=== PATIENT | male | born 1995 ===

== ENCOUNTER 2018-04-04 00:27 | Inpatient (IN) | payer OTHER ==
[2018-04-04 00:35] VITALS: O2SAT 98
--- NOTE | 2018-04-04 00:47 | ED PDOC ---
Psych Transfer Clearance - Clearance Statement Clearance Statement: Reviewed vital signs, lab results and transfer papers. Patient clinically stable for psychiatric admission.
[2018-04-04] MEDS ORDERED: Magnesium Hydroxide Susp 30 ml UD PO PRN (01:22)
[2018-04-04] MEDS ORDERED: DiphenhydrAMINE 50 mg/ml Inj IM PRN (01:22)
[2018-04-04] MEDS ORDERED: Alum-Mag Hydrox-Simethicone Susp (30 mL) PO PRN (01:22)
--- NOTE | 2018-04-04 06:41 | PCM.BM ---
<Kiley Gil - Last Filed: 04/04/18 06:39> Treatment Plan Problems - Problems identified on initial assessmt Self Harm Date Initiated: 04/04/18 Time Initiated: 02:00 Assessment reference: NA Status: Active Suicidal Ideation Date Initiated: 04/04/18 Time Initiated: 02:00 Assessment reference: NA Medication Nonadherence Date Initiated: 04/04/18 Time Initiated: 02:00 Assessment reference: NA Status: Active Hopelessness/Helplessness Date Initiated: 04/04/18 Time Initiated: 02:00 Assessment reference: NA Status: Active Treatment assets and liabiliti Patient Assests: cooperative, self-reliant, ADL independent, physically healthy, negotiates basic needs, cognitively intact Patient Liabilities: financial problems, poor support system, relationship conflicts, substance abuse, legal issue - Milieu Protocol Maintain good personal hygiene: daily Encourage regular showers, other Remind patient to perform daily oral care (prn), other Assist patient to perform ADL's (prn) Conduct patient checks and document Observation sheet: Q15 minutes Maintain personal safety: every shift Educate patient to report safety concerns to staff, every shift Monitor environment for contraband/sharps Medication safety: Monitor for expected outcome, potential side effects: every shift, Assess barriers to learning: every shift, Assess readiness for medication education: every shift <Marcellus Solano - Last Filed: 04/05/18 16:17> Family Contact Family involvement: Famliy/SO not involved Family contact: Patient declines to allow family contact at present Family contact name: Pt refused. - Goals for Treatment Patient goals for treatment: Pt refused to participate. Discharge/Continuing Care - Education Needs Education Needs: Patient Medication, Patient Diagnosis/Disease Process, Patient Coping Skills, Patient Community resources, Patient Aftercare Safety Plan - Discharge Discharge Criteria: Tolerates medication w/o severe side effects, Free of Suicidal thoughts, Free of paranoid thoughts, Free of agitation, Normal sleep pattern, Ability to care for self, Reduction of target symptoms Discharge to:: Correction - Treatment Team Participation Patient/Family/SO Statement: 04/05/18 16:16 Pt refused to attend treatment team on 04/05/18 due to pain in hand. Discussed with Family/SO: No Was Patient/Family/SO present at Treatment Team Meeting: No
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
--- NOTE | 2018-04-04 13:53 | CP.PCM.CON ---
History of Present Illness - History of Present Illness History of Present Illness: 23 yo male with history of depression and polysubstance abuse admitted to psyche unit because of suicidal attempt. Review of Systems - Review of Systems All systems: reviewed and no additional remarkable complaints except (aside from those mentioned above, 12 point system review were negative by me) Past Patient History - Tetanus Immunizations Tetanus Immunization: Unknown - Past Social History Smoking Status: Heavy Smoker > 10 Cigarettes Daily Chewing Tobacco Use: No Cigar Use: No Alcohol: None Drugs: Cannabis, Methamphetamine - GASTROINTESTINAL Hx Gastritis: Yes - PSYCHIATRIC Hx Anxiety: Yes Hx Depression: Yes Hx Substance Use: Yes (methamphetamine and) - ANESTHESIA Hx Anesthesia: Yes Hx Anesthesia Reactions: No Hx Malignant Hyperthermia: No Has any member of the family had a problem w/ anesthesia?: No Meds Allergies/Adverse Reactions: Allergies Allergy/AdvReac Type Severity Reaction Status Date / Time tramadol Allergy RASH Verified 04/04/18 03:32 - Medications Medications: Current Medications Acetaminophen (Tylenol 325mg Tab) 650 mg PO Q4 PRN PRN Reason: Pain, moderate (4-7) Al Hydrox/Mg Hydrox/Simethicone (Maalox Plus 30 Ml) 30 ml PO Q4 PRN PRN Reason: Dyspepsia Diphenhydramine HCl (Benadryl) 50 mg IM Q6 PRN PRN Reason: Extrapyramidal S/S Unable PO Diphenhydramine HCl (Benadryl) 50 mg PO Q6 PRN PRN Reason: Extrapyramidal Symptoms Diphenhydramine HCl (Benadryl) 50 mg PO HS PRN PRN Reason: Sleep Gabapentin (Neurontin) 100 mg PO TID AGUSTIN Haloperidol (Haldol) 5 mg PO Q4 PRN PRN Reason: Agitation Haloperidol Lactate (Haldol) 5 mg IM Q4 PRN PRN Reason: Agitation, Unable to Take PO Lorazepam (Ativan) 2 mg IM Q4 PRN PRN Reason: Anxiety/Agitation,Unable PO Magnesium Hydroxide (Milk Of Magnesia) 30 ml PO HS PRN PRN Reason: Constipation Quetiapine Fumarate (Seroquel) 50 mg PO BID AGUSTIN Quetiapine Fumarate (Seroquel) 200 mg PO HS AGUSTIN Physical Exam - Constitutional Appears: No Acute Distress - Head Exam Head Exam: ATRAUMATIC - Eye Exam Eye Exam: absent: Scleral icterus - ENT Exam ENT Exam: Mucous Membranes Moist - Neck Exam Neck exam: Negative for: Meningismus - Respiratory Exam Respiratory Exam: absent: Rales, Rhonchi, Wheezes, Respiratory Distress - Cardiovascular Exam Cardiovascular Exam: REGULAR RHYTHM, +S1, +S2 - GI/Abdominal Exam GI & Abdominal Exam: Soft. absent: Tenderness - Rectal Exam Rectal Exam: Deferred - Extremities Exam Extremities exam: Negative for: pedal edema - Back Exam Back exam: NORMAL INSPECTION - Neurological Exam Neurological exam: Alert, Oriented x3 - Psychiatric Exam Psychiatric exam: Normal Affect Results - Vital Signs Recent Vital Signs: Last Vital Signs Temp 98.4 F 04/04/18 00:32 Pulse 93 H 04/04/18 01:20 Resp 18 04/04/18 01:20 BP 106/75 04/04/18 00:32 Pulse Ox 98 04/04/18 00:32 Assessment & Plan (1) Suicide attempt Status: Acute Comment: psyche is managing
[2018-04-04 20:30] LABS: HEPATITIS B SURFACE AG Negative (NEGATIVE)
[2018-04-04 20:36] LABS: HEPATITIS A IGM NEGATIVE (NEGATIVE); HEPATITIS B CORE AB NEGATIVE (NEGATIVE)
[2018-04-04 20:47] LABS: HEPATITIS C ANTIBODY NEGATIVE (NEGATIVE)
[2018-04-05 08:43] LABS: HEMOGLOBIN 13.2 g/dL (12.0-18.0); MEAN CELL VOLUME 86.1 fl (80.0-94.0); MEAN CORPUSCULAR HEMOGLOBIN 28.1 pg (27.0-31.0); MEAN CORPUSCULAR HGB CONC 32.6 g/dL (33.0-37.0); RBC 4.71 Mil/uL (4.40-5.90); RED CELL DISTRIBUTION WIDTH 13.4 % (11.5-14.5); WHITE BLOOD COUNT 15.1 K/uL (4.8-10.8)
[2018-04-05 08:55] LABS: ALB/GLOB RATIO 1.3 (1.0-2.1); ALBUMIN 4.3 g/dL (3.5-5.0); ALT/SGPT 25 U/L (21-72); AST/SGOT 33 U/L (17-59); BLOOD UREA NITROGEN 13 mg/dl (9-20); CALCIUM 9.6 mg/dL (8.4-10.2); GFR NON-AFRICAN AMERICAN > 60; HDL CHOLESTEROL 33 MG/DL (30-70)
[2018-04-05 09:06] LABS: LDL CHOLESTEROL 57 mg/dL (0-129)
[2018-04-05 09:11] LABS: T4 7.01 ug/dl (5.5-11.0)
--- NOTE | 2018-04-05 13:24 | PCM.PYCHPN ---
Psychiatric Progress Note - Psychiatric Progress Note Patient seen today, length of contact: pt evaluated discussed with team chart reviewed Patient Chief Complaint: I do not want to talk Problems Identified/Issues Discussed: pt seen in his room, poor eye contact, guarded , evasive poor eye contact, depressed mood and affect, poor motivation and low energy, possibly related to amphetamine withdrawals, continues to report non command auditory hallucinations, putting him down, denied command hallucinations, denied active thoughts of self harm on the unit Medical Problems: pt reported first hospitalization due to suicidal attempt at age 13, multiple hospitalizations, after with hx of non compliance with treatment DSM 5 Symptoms Update: bipolar disorder amphetamine abuse cannabis abuse Medication Change: No Medical Record Reviewed: Yes Mental Status Examination - Cognitive Function Orientation: Person, Place, Situation Attention: WNL Concentration: Poor Association: WNL Fund of Knowledge: Poor Decription of patient's judgement and insights: poor insight and judgment - Mood Mood: Depressed, Anxious - Affect Affect: Constricted - Speech Speech: Soft - Formal Thought Process Formal Thought Process: Hallucinations, Delusions, Paranoia - Suicidal Ideation Suicidal Ideation: No - Homicidal Ideation Homicidal Ideation: No Goal/Treatment Plan - Goal/Treatment Plan Need for Continued Stay: Remain at risks for inpatient hospitalization, Discharge may exacerbated symptoms Progress Toward Problem(s) and Goals/Treatment Plan: t seroquel 50mg bid and 200mg qhs neurontin 100mg tid follow up on HIV and hepatits status motivational, group and supportive therapy
[2018-04-05] MEDS: Amoxicillin-Clav 875-125 mg Tab PO SCH (21:20)
[2018-04-06] MEDS: Amoxicillin-Clav 875-125 mg Tab PO SCH ×2 (09:15→21:08)
--- NOTE | 2018-04-06 10:43 | PCM.PYCHPN ---
Psychiatric Progress Note - Psychiatric Progress Note Patient seen today, length of contact: Pt evaluated, case discussed w/ team, chart reviewed Patient Chief Complaint: AH Problems Identified/Issues Discussed: Patient continues to report depressed mood, low energy, low motivation and AH, saying insulting things to him. He would not tell the headline writer what the voices were specifically saying, but denied CAH. NO SI/HI. He denied adverse effects to medications. We discussed continued titration of Seroquel. Medication Change: Yes (Increase Seroquel) Medical Record Reviewed: Yes Consults ordered or reviewed: Medicine consult Mental Status Examination - Cognitive Function Orientation: Person, Place, Situation, Time Memory: Intact Attention: WNL Concentration: Poor Association: WNL Fund of Knowledge: Poor Decription of patient's judgement and insights: Poor I/J - Mood Mood: Depressed, Anxious - Affect Affect: Constricted - Speech Speech: Soft - Formal Thought Process Formal Thought Process: Hallucinations Psychotic Thoughts and Behaviors: +AH - Suicidal Ideation Suicidal Ideation: No - Homicidal Ideation Homicidal Ideation: No Goal/Treatment Plan - Goal/Treatment Plan Need for Continued Stay: Remain at risks for inpatient hospitalization, Discharge may exacerbated symptoms Progress Toward Problem(s) and Goals/Treatment Plan: Bipolar disorder, Amphetamine abuse, Cannabis abuse -Increase Seroquel -Medicine consult -Individual and group therapy -Psychoeducation -Disposition planning
[2018-04-07 07:18] LABS: BASO % 0.2 % (0.0-2.0); EOS % 0.1 % (0.0-4.0); LYMPH # 1.1 K/uL (1.0-4.3); MEAN CELL VOLUME 85.2 fl (80.0-94.0); MEAN CORPUSCULAR HEMOGLOBIN 28.4 pg (27.0-31.0); MEAN CORPUSCULAR HGB CONC 33.3 g/dL (33.0-37.0); MEAN PLATELET VOLUME 7.5 fl (7.2-11.7); MONO # 2.1 K/uL (0.0-0.8); MONO % 11.3 % (0.0-10.0); NEUT # 15.5 K/uL (1.8-7.0); NEUT % 82.4 % (50.0-75.0); PLATELET COUNT 346 K/uL (130-400); RBC 4.57 Mil/uL (4.40-5.90); RED CELL DISTRIBUTION WIDTH 13.6 % (11.5-14.5); WHITE BLOOD COUNT 18.8 K/uL (4.8-10.8)
[2018-04-07] MEDS: Amoxicillin-Clav 875-125 mg Tab PO SCH ×2 (08:07→21:31)
--- NOTE | 2018-04-07 08:25 | PCM.PYCHPN ---
Psychiatric Progress Note - Psychiatric Progress Note Patient seen today, length of contact: Pt evaluated, case discussed w/ team, chart reviewed Patient Chief Complaint: Auditory Hallucinations Problems Identified/Issues Discussed: Patient continues to report depressed mood, low energy, low motivation and CAH, whispering to him that he should take a pen and stab himself in the neck. He is able to contract for safety and states that he will not engage in any self harm. He denied adverse effects to medications. We discussed continued titration of Seroquel. Medication Change: Yes (Increase Seroquel) Medical Record Reviewed: Yes Consults ordered or reviewed: Medicine consult Mental Status Examination - Cognitive Function Orientation: Person, Place, Situation, Time Memory: Intact Attention: WNL Concentration: Poor Association: WNL Fund of Knowledge: Poor Decription of patient's judgement and insights: Poor I/J - Mood Mood: Depressed, Anxious - Affect Affect: Constricted - Speech Speech: Soft - Formal Thought Process Formal Thought Process: Hallucinations Psychotic Thoughts and Behaviors: +CAH - Suicidal Ideation Suicidal Ideation: No - Homicidal Ideation Homicidal Ideation: No Goal/Treatment Plan - Goal/Treatment Plan Need for Continued Stay: Remain at risks for inpatient hospitalization, Discharge may exacerbated symptoms Progress Toward Problem(s) and Goals/Treatment Plan: Bipolar disorder, Amphetamine abuse, Cannabis abuse -Increase Seroquel -Will continue to monitor for safety -Medicine consult -Individual and group therapy -Psychoeducation -Disposition planning
[2018-04-07 11:13] LABS: LYMPHOCYTE 7 % (20-50); METAMYELOCYTE 1 % (0-0); MONOCYTE 6 % (0-10); MYELOCYTE 2 % (0-0); NEUTROPHIL 84 % (42-75); PLATELET ESTIMATE NORMAL (NORMAL); TOTAL CELLS COUNTED 100
[2018-04-07 21:02] LABS: BASO # 0.1 K/uL (0.0-0.2); BASO % 0.5 % (0.0-2.0); EOS # 0.1 K/uL (0.0-0.7); EOS % 0.4 % (0.0-4.0); HEMOGLOBIN 12.5 g/dL (12.0-18.0); LYMPH # 1.7 K/uL (1.0-4.3); LYMPH % 10.9 % (20.0-40.0); MEAN CELL VOLUME 84.9 fl (80.0-94.0); MEAN CORPUSCULAR HEMOGLOBIN 28.2 pg (27.0-31.0); MEAN CORPUSCULAR HGB CONC 33.2 g/dL (33.0-37.0); MEAN PLATELET VOLUME 7.8 fl (7.2-11.7); MONO % 12.8 % (0.0-10.0); NEUT % 75.4 % (50.0-75.0); RBC 4.42 Mil/uL (4.40-5.90); RED CELL DISTRIBUTION WIDTH 13.3 % (11.5-14.5); WHITE BLOOD COUNT 15.9 K/uL (4.8-10.8)
[2018-04-07 21:17] LABS: ALB/GLOB RATIO 1.1 (1.0-2.1); ALBUMIN 3.8 g/dL (3.5-5.0); ALT/SGPT 24 U/L (21-72); AST/SGOT 28 U/L (17-59); BLOOD UREA NITROGEN 12 mg/dl (9-20); CALCIUM 9.3 mg/dL (8.4-10.2); GFR NON-AFRICAN AMERICAN > 60
[2018-04-08 06:33] LABS: BASO # 0.1 K/uL (0.0-0.2); BASO % 0.4 % (0.0-2.0); EOS # 0.1 K/uL (0.0-0.7); EOS % 0.4 % (0.0-4.0); HEMOGLOBIN 12.6 g/dL (12.0-18.0); LYMPH # 1.1 K/uL (1.0-4.3); LYMPH % 6.5 % (20.0-40.0); MEAN CELL VOLUME 86.4 fl (80.0-94.0); MEAN CORPUSCULAR HEMOGLOBIN 28.4 pg (27.0-31.0); MEAN CORPUSCULAR HGB CONC 32.9 g/dL (33.0-37.0); MEAN PLATELET VOLUME 7.6 fl (7.2-11.7); MONO # 1.8 K/uL (0.0-0.8); MONO % 10.8 % (0.0-10.0); NEUT # 13.4 K/uL (1.8-7.0); NEUT % 81.9 % (50.0-75.0); RBC 4.44 Mil/uL (4.40-5.90); RED CELL DISTRIBUTION WIDTH 13.4 % (11.5-14.5); WHITE BLOOD COUNT 16.4 K/uL (4.8-10.8)
[2018-04-08] MEDS: Amoxicillin-Clav 875-125 mg Tab PO SCH (08:40)
--- NOTE | 2018-04-08 08:58 | PCM.PYCHPN ---
Psychiatric Progress Note - Psychiatric Progress Note Patient seen today, length of contact: Pt evaluated, case discussed w/ team, chart reviewed Patient Chief Complaint: Auditory Hallucinations Problems Identified/Issues Discussed: Patient continues to report depressed mood, low energy, low motivation and CAH, telling him to kill himself and insulting him. He is able to contract for safety at this time and denies acute SI. He denied adverse effects to medications. We discussed continued titration of Seroquel. Medication Change: Yes (Increase Seroquel) Medical Record Reviewed: Yes Consults ordered or reviewed: Medicine consult, ID and Surgery consults ordered Mental Status Examination - Cognitive Function Orientation: Person, Place, Situation, Time Memory: Intact Attention: WNL Association: WNL Fund of Knowledge: [facility] Decription of patient's judgement and insights: Poor I/J - Mood Mood: Depressed, Anxious - Affect Affect: Constricted - Speech Speech: Soft - Formal Thought Process Formal Thought Process: Hallucinations Psychotic Thoughts and Behaviors: +CAH - Suicidal Ideation Suicidal Ideation: No - Homicidal Ideation Homicidal Ideation: No Goal/Treatment Plan - Goal/Treatment Plan Need for Continued Stay: Remain at risks for inpatient hospitalization, Discharge may exacerbated symptoms Progress Toward Problem(s) and Goals/Treatment Plan: Bipolar disorder, Amphetamine abuse, Cannabis abuse -Increase Seroquel -Will continue to monitor for safety -Medicine consult -ID consult ordered -General Surgery consult ordered -Individual and group therapy -Psychoeducation -Disposition planning
--- NOTE | 2018-04-08 10:38 | CP.PCM.CON ---
History of Present Illness - History of Present Illness History of Present Illness: 23 yo male with Hx of depression and multiple suicide attempts is admitted to psych for depression ID consulted for left arm cellulitis Recent hx of Left arm lacerations secondary to suicide attempt as well as attempt to inject in nearby veins Review of Systems - Review of Systems All systems: reviewed and no additional remarkable complaints except - Constitutional Constitutional: As Per HPI - EENT Nose/Mouth/Throat: absent: As Per HPI, Epistaxis, Nasal Congestion, Nasal Discharge, Nasal Obstruction, Nasal Trauma, Nose Pain, Post Nasal Drip, Sinus Pain, Sinus Pressure, Bleeding Gums, Change in Voice, Dental Pain, Dry Mouth, Dysphagia, Halitosis, Hoarsness, Lip Swelling, Mouth Lesions, Mouth Pain, Odynophagia, Sore Throat, Throat Swelling, Tongue Swelling, Facial Pain, Neck Pain, Neck Mass, Other - Cardiovascular Cardiovascular: absent: As Per HPI, Acrocyanosis, Chest Pain, Chest Pain at Rest, Chest Pain with Activity, Claudication, Diaphoresis, Dyspnea, Dyspnea on Exertion, Edema, Irregular Heart Rhythm, Pain Radiating to Arm/Neck/Jaw, Leg Edema, Leg Ulcers, Lightheadedness, Orthopnea, Palpitations, Paroxysmal Nocturnal Dyspnea, Pedal Edema, Radiating Pain, Rapid Heart Rate, Slow Heart Rate, Syncope, Other - Respiratory Respiratory: absent: As Per HPI, Cough, Dyspnea, Hemoptysis, Dyspnea on Exertion, Wheezing, Snoring, Stridor, Pain on Inspiration, Chest Congestion, Excessive Mucous Production, Change in Mucous Color, Pain with Coughing, Other - Gastrointestinal Gastrointestinal: absent: As Per HPI, Abdominal Pain, Belching, Bloating, Change in Bowel Habits, Change in Stool Character, Coffee Ground Emesis, Constipation, Cramping, Diarrhea, Dyspepsia, Dysphagia, Early Satiety, Excessive Flatus, Fecal Incontinence, Heartburn, Hematemesis, Hematochezia, Loose Stools, Melena, Nausea, Odynophagia, Temesmus, Vomiting, Other - Genitourinary Genitourinary: absent: As Per HPI, Change in Urinary Stream, Difficulty Urinating, Dysuria, Flank Pain, Hematuria, Pyuria, Nocturia, Urinary Incontinence, Urinary Frequency, Urinary Hesitance, Urinary Urgency, Voiding Freq/Small Amts, Freq UTI, Hx Renal/Bladder Calculi, Hx /Renal Surgery, Bladder Distension, Other - Musculoskeletal Musculoskeletal: As Per HPI - Integumentary Integumentary: As Per HPI, Skin Pain, Swelling, Wounds - Neurological Neurological: absent: As Per HPI, Abnormal Gait, Abnormal Hearing, Abnormal Movements, Abnormal Speech, Behavioral Changes, Burning Sensations, Confusion, Convulsions, Disequilibrium, Dizziness, Numbness, Focal Weakness, Frequent Falls, Headaches, Lack of Coordination, Loss of Vision, Memory Loss, Pa resthesias, Radicular Pain, Restless Legs, Sensory Deficit, Syncope, Tingling, Tremor, Vertigo, Weakness, Other Visual Disturbances, Other - Psychiatric Psychiatric: As Per HPI Past Patient History - Tetanus Immunizations Tetanus Immunization: Unknown - Past Social History Smoking Status: Heavy Smoker > 10 Cigarettes Daily Chewing Tobacco Use: No Cigar Use: No Alcohol: None Drugs: Cannabis, Methamphetamine - GASTROINTESTINAL Hx Gastritis: Yes - PSYCHIATRIC Hx Anxiety: Yes Hx Depression: Yes Hx Substance Use: Yes (methamphetamine and) - ANESTHESIA Hx Anesthesia: Yes Hx Anesthesia Reactions: No Hx Malignant Hyperthermia: No Has any member of the family had a problem w/ anesthesia?: No Meds Allergies/Adverse Reactions: Allergies Allergy/AdvReac Type Severity Reaction Status Date / Time tramadol Allergy RASH Verified 04/04/18 03:32 - Medications Medications: Current Medications Acetaminophen (Tylenol 325mg Tab) 650 mg PO Q4 PRN PRN Reason: Fever >100.4 F Last Admin: 04/07/18 17:12 Dose: 650 mg Al Hydrox/Mg Hydrox/Simethicone (Maalox Plus 30 Ml) 30 ml PO Q4 PRN PRN Reason: Dyspepsia Amoxicillin/Clavulanate Potassium (Augmentin 875 Mg-125 Mg Tab) 1 tab PO Q12 AGUSTIN; Protocol Last Admin: 04/08/18 08:40 Dose: 1 tab Diphenhydramine HCl (Benadryl) 50 mg IM Q6 PRN PRN Reason: Extrapyramidal S/S Unable PO Diphenhydramine HCl (Benadryl) 50 mg PO Q6 PRN PRN Reason: Extrapyramidal Symptoms Diphenhydramine HCl (Benadryl) 50 mg PO HS PRN PRN Reason: Sleep Haloperidol (Haldol) 5 mg PO Q4 PRN PRN Reason: Agitation Haloperidol Lactate (Haldol) 5 mg IM Q4 PRN PRN Reason: Agitation, Unable to Take PO Vancomycin HCl 1 gm/ Sodium (Chloride) 250 mls @ 166.667 mls/hr IVPB Q12 AGUSTIN; Protocol Last Admin: 04/08/18 08:40 Dose: 166.667 mls/hr Ibuprofen (Motrin Tab) 600 mg PO Q8 PRN PRN Reason: Pain, severe (8-10) Last Admin: 04/08/18 09:05 Dose: 600 mg Lorazepam (Ativan) 2 mg IM Q4 PRN PRN Reason: Anxiety/Agitation,Unable PO Magnesium Hydroxide (Milk Of Magnesia) 30 ml PO HS PRN PRN Reason: Constipation Quetiapine Fumarate (Seroquel) 100 mg PO BID AG[facility]IN Last Admin: 04/08/18 08:39 Dose: 100 mg Quetiapine Fumarate (Seroquel) 300 mg PO HS [facility] Physical Exam - Constitutional Appears: No Acute Distress, Chronically Ill - Head Exam Head Exam: ATRAUMATIC, NORMOCEPHALIC - Eye Exam Eye Exam: absent: Scleral icterus - ENT Exam ENT Exam: Mucous Membranes Dry - Neck Exam Neck exam: Negative for: Lymphadenopathy - Respiratory Exam Respiratory Exam: Decreased Breath Sounds, Clear to Auscultation Bilateral - Cardiovascular Exam Cardiovascular Exam: REGULAR RHYTHM, +S1, +S2 - GI/Abdominal Exam GI & Abdominal Exam: Diminished Bowel Sounds, Soft. absent: Tenderness - Rectal Exam Rectal Exam: Deferred - Exam Exam: NORMAL INSPECTION - Extremities Exam Extremities exam: Positive for: pedal pulses present. Negative for: calf ten derness, pedal edema Additional comments: left arm swelling and redness - severe local tenderness and warmth pulses and sensation in tacy - Back Exam Back exam: absent: CVA tenderness (L), CVA tenderness (R) - Neurological Exam Neurological exam: Alert, CN II-XII Intact, Oriented x3, Reflexes Normal - Psychiatric Exam Psychiatric exam: Normal Mood - Skin Skin Exam: Erythema Results - Vital Signs Recent Vital Signs: Last Vital Signs Temp 101.6 F H 04/07/18 17:12 Pulse 102 H 04/07/18 16:08 Resp 19 04/07/18 16:08 BP 121/71 04/07/18 16:08 Pulse Ox 98 04/04/18 00:32 - Labs Result Diagrams: 04/08/18 06:05 02/10/19 20:48 Labs: Laboratory Results - last 24 hr 04/07/18 04/07/18 04/07/18 06:30 06:30 20:25 WBC RBC Hgb Hct MCV MCH MCHC RDW Plt Count MPV Neut % (Auto) Lymph % (Auto) [place] % (Auto) Eos % (Auto) Baso % (Auto) Neut # (Auto) Lymph # (Auto) [place] # (Auto) Eos # (Auto) Baso # (Auto) Neutrophils % (Manual) 84 H Lymphocytes % (Manual) 7 L Monocytes % (Manual) 6 Metamyelocytes % 1 H Myelocytes % 2 H Platelet Estimate Normal RBC Morphology Normal Sodium Potassium Chloride Carbon Dioxide Anion Gap BUN Creatinine Est GFR ( Amer) Est GFR (Non-Af Amer) POC Glucose (mg/dL) 196 H Random Glucose Lactic Acid Calcium Total Bilirubin AST ALT Alkaline Phosphatase Total Protein Albumin Globulin Albumin/Globulin Ratio 25-OH Vitamin D Total < 12.8 L 04/07/18 04/07/18 04/07/18 20:48 20:48 20:48 WBC 15.9 H RBC 4.42 Hgb 12.5 Hct 37.6 MCV 84.9 MCH 28.2 MCHC 33.2 RDW 13.3 Plt Count 340 MPV 7.8 Neut % (Auto) 75.4 H Lymph % (Auto) 10.9 L [place] % (Auto) 12.8 H Eos % (Auto) 0.4 Baso % (Auto) 0.5 Neut # (Auto) 12.0 H Lymph # (Auto) 1.7 [place] # (Auto) 2.0 H Eos # (Auto) 0.1 Baso # (Auto) 0.1 Neutrophils % (Manual) Lymphocytes % (Manual) Monocytes % (Manual) Metamyelocytes % Myelocytes % Platelet Estimate RBC Morphology Sodium 138 Potassium 3.7 Chloride 96 L Carbon Dioxide 28 Anion Gap 18 BUN 12 Creatinine 0.9 Est GFR ( Amer) > 60 Est GFR (Non-Af Amer) > 60 POC Glucose (mg/dL) Random Glucose 121 H Lactic Acid 1.1 Calcium 9.3 Total Bilirubin 0.3 AST 28 ALT 24 Alkaline Phosphatase 75 Total Protein 7.3 Albumin 3.8 Globulin 3.4 Albumin/Globulin Ratio 1.1 25-OH Vitamin D Total 04/08/18 06:05 WBC 16.4 H RBC 4.44 Hgb 12.6 Hct 38.4 MCV 86.4 MCH 28.4 MCHC 32.9 L RDW 13.4 Plt Count 377 MPV 7.6 Neut % (Auto) 81.9 H Lymph % (Auto) 6.5 L [place] % (Auto) 10.8 H Eos % (Auto) 0.4 Baso % (Auto) 0.4 Neut # (Auto) 13.4 H Lymph # (Auto) 1.1 [place] # (Auto) 1.8 H Eos # (Auto) 0.1 Baso # (Auto) 0.1 Neutrophils % (Manual) Lymphocytes % (Manual) Monocytes % (Manual) Metamyelocytes % Myelocytes % Platelet Estimate RBC Morphology Sodium Potassium Chloride Carbon Dioxide Anion Gap BUN Creatinine Est GFR ( Amer) Est GFR (Non-Af Amer) POC Glucose (mg/dL) Random Glucose Lactic Acid Calcium Total Bilirubin AST ALT Alkaline Phosphatase Total Protein Albumin Globulin Albumin/Globulin Ratio 25-OH Vitamin D Total Assessment & Plan (1) Cellulitis of arm, left Status: Acute (2) Suicide attempt Status: Acute - Assessment and Plan (Free Text) Assessment: severe cellulitis left arm r/o necrotizing fascitis r/o abscess recc : CT arm, surgical consult , tetanus toxoid, cultures, iv antibiotics Vanco / Zosyn Plan: transfer to Med surg pain management psych follow up
--- NOTE | 2018-04-08 11:25 | CP.PCM.CON ---
<OmarKoffi - Last Filed: 04/08/18 11:20> History of Present Illness - History of Present Illness History of Present Illness: Surgery consult note - Dr. Michel 23M with pmhx of depression and multiple suicide attempts seen and evaluated at bedside for left forearm abscess. States that it started 4 or 5 days ago after he tried injecting methamphetamines and attempting to kill himself with slicing his arm. States the swelling and redness at his forearm has gotten more severe over the past few days without any signs of improvement. States that he has had abscesses like this before but they have not been this significant. States that he is feeling some numbness in his finger tips today and that he is in severe pain to the arm. Reports f/c and denies n/v/sob/cp. PMHx: above PSHx: denies All: tramadol Past Patient History - Tetanus Immunizations Tetanus Immunization: Unknown - Past Social History Smoking Status: Heavy Smoker > 10 Cigarettes Daily Chewing Tobacco Use: No Cigar Use: No Alcohol: None Drugs: Cannabis, Methamphetamine - GASTROINTESTINAL Hx Gastritis: Yes - PSYCHIATRIC Hx Anxiety: Yes Hx Depression: Yes Hx Substance Use: Yes (methamphetamine and) - ANESTHESIA Hx Anesthesia: Yes Hx Anesthesia Reactions: No Hx Malignant Hyperthermia: No Has any member of the family had a problem w/ anesthesia?: No Meds Home Medications: Home Medication List Medication Instructions Recorded Confirmed Type RX: Amoxicillin/Clavulanate 1 tab PO Q12 tab 04/08/18 Rx [Augmentin 875 MG-125 MG Tab] RX: QUEtiapine [SEROquel] 300 mg PO HS tab 04/08/18 Rx RX: QUEtiapine [Seroquel] 100 mg PO BID tab 04/08/18 Rx Allergies/Adverse Reactions: Allergies Allergy/AdvReac Type Severity Reaction Status Date / Time tramadol Allergy RASH Verified 04/04/18 03:32 - Medications Medications: Current Medications Amoxicillin/Clavulanate Potassium (Augmentin 875 Mg-125 Mg Tab) 1 tab PO Q12 AGUSTIN; Protocol Last Admin: 04/08/18 08:40 Dose: 1 tab Vancomycin HCl 1 gm/ Sodium (Chloride) 250 mls @ 166.667 mls/hr IVPB Q12 AGUSTIN; Protocol Last Admin: 04/08/18 08:40 Dose: 166.667 mls/hr Ibuprofen (Motrin Tab) 600 mg PO Q8 PRN PRN Reason: Pain, severe (8-10) Last Admin: 04/08/18 09:05 Dose: 600 mg Quetiapine Fumarate (Seroquel) 100 mg PO BID [facility] Last Admin: 04/08/18 08:39 Dose: 100 mg Quetiapine Fumarate (Seroquel) 300 mg PO HS [facility] Physical Exam - Constitutional Appears: Non-toxic - Head Exam Head Exam: ATRAUMATIC - Eye Exam Eye Exam: EOMI. absent: Scleral icterus - ENT Exam ENT Exam: Mucous Membranes Moist - Respiratory Exam Respiratory Exam: NORMAL BREATHING PATTERN. absent: Accessory Muscle Use - Cardiovascular Exam Cardiovascular Exam: REGULAR RHYTHM. absent: Bradycardia - GI/Abdominal Exam GI & Abdominal Exam: Normal Bowel Sounds - Extremities Exam Additional comments: Left forearm focused abscess development appreciated with purulent and serous drainage erythema globally to the forearm cap refill <3 seconds to the digits paresthesias and numbness appreciated to the digits pain on palpation of abscess and periabscess able to move digits but some pain demonstrated on active motion forearm is tight and firm on palpation - Neurological Exam Neurological exam: Alert, Oriented x3 Results - Vital Signs Recent Vital Signs: Last Vital Signs Temp 101.6 F H 04/07/18 17:12 Pulse 102 H 04/07/18 16:08 Resp 19 04/07/18 16:08 BP 121/71 04/07/18 16:08 Pulse Ox 98 04/04/18 00:32 - Labs Result Diagrams: 04/08/18 06:05 04/07/18 20:48 Labs: Laboratory Results - last 24 hr 04/07/18 04/07/18 04/07/18 06:30 20:25 20:48 WBC 15.9 H RBC 4.42 Hgb 12.5 Hct 37.6 MCV 84.9 MCH 28.2 MCHC 33.2 RDW 13.3 Plt Count 340 MPV 7.8 Neut % (Auto) 75.4 H Lymph % (Auto) 10.9 L [place] % (Auto) 12.8 H Eos % (Auto) 0.4 Baso % (Auto) 0.5 Neut # (Auto) 12.0 H Lymph # (Auto) 1.7 [place] # (Auto) 2.0 H Eos # (Auto) 0.1 Baso # (Auto) 0.1 Sodium Potassium Chloride Carbon Dioxide Anion Gap BUN Creatinine Est GFR ( Amer) Est GFR (Non-Af Amer) POC Glucose (mg/dL) 196 H Random Glucose Lactic Acid Calcium Total Bilirubin AST ALT Alkaline Phosphatase Total Protein Albumin Globulin Albumin/Globulin Ratio 25-OH Vitamin D Total < 12.8 L 04/07/18 04/07/18 04/08/18 20:48 20:48 06:05 WBC 16.4 H RBC 4.44 Hgb 12.6 Hct 38.4 MCV 86.4 MCH 28.4 MCHC 32.9 L RDW 13.4 Plt Count 377 MPV 7.6 Neut % (Auto) 81.9 H Lymph % (Auto) 6.5 L [place] % (Auto) 10.8 H Eos % (Auto) 0.4 Baso % (Auto) 0.4 Neut # (Auto) 13.4 H Lymph # (Auto) 1.1 [place] # (Auto) 1.8 H Eos # (Auto) 0.1 Baso # (Auto) 0.1 Sodium 138 Potassium 3.7 Chloride 96 L Carbon Dioxide 28 Anion Gap 18 BUN 12 Creatinine 0.9 Est GFR ( Amer) > 60 Est GFR (Non-Af Amer) > 60 POC Glucose (mg/dL) Random Glucose 121 H Lactic Acid 1.1 Calcium 9.3 Total Bilirubin 0.3 AST 28 ALT 24 Alkaline Phosphatase 75 Total Protein 7.3 Albumin 3.8 Globulin 3.4 Albumin/Globulin Ratio 1.1 25-OH Vitamin D Total Assessment & Plan - Assessment and Plan (Free Text) Assessment: 23M with left forearm abscess and cellulitis Plan: Patient seen and evaluated Discussed with attending Dr. Michel Probable OR today for incision and drainage of foreign abscess Patient to be kept NPO - Date & Time Date: 04/08/18 Time: 11:33 <Santos Michel - Last Filed: 04/08/18 15:01> History of Present Illness - History of Present Illness History of Present Illness: Patient was seen and examined at the bedside. Agree with resident's note above. Physical Exam - Extremities Exam Additional comments: mild parasthesis of the digits, fluctuant area in the forearm, tender to palpation, surrounding erythema, full range of motion, sutures from prior lacerations in place Results - Vital Signs Recent Vital Signs: Last Vital Signs Temp 98.1 F 04/08/18 09:00 Pulse 93 H 04/08/18 09:00 Resp 18 04/08/18 09:00 BP 117/73 04/08/18 09:00 Pulse Ox 98 04/04/18 00:32 - Labs Result Diagrams: 04/08/18 06:05 04/07/18 20:48 Labs: Laboratory Results - last 24 hr 04/07/18 04/07/18 04/07/18 20:25 20:48 20:48 WBC 15.9 H RBC 4.42 Hgb 12.5 Hct 37.6 MCV 84.9 MCH 28.2 MCHC 33.2 RDW 13.3 Plt Count 340 MPV 7.8 Neut % (Auto) 75.4 H Lymph % (Auto) 10.9 L [place] % (Auto) 12.8 H Eos % (Auto) 0.4 Baso % (Auto) 0.5 Neut # (Auto) 12.0 H Lymph # (Auto) 1.7 [place] # (Auto) 2.0 H Eos # (Auto) 0.1 Baso # (Auto) 0.1 Sodium 138 Potassium 3.7 Chloride 96 L Carbon Dioxide 28 Anion Gap 18 BUN 12 Creatinine 0.9 Est GFR ( Amer) > 60 Est GFR (Non-Af Amer) > 60 POC Glucose (mg/dL) 196 H Random Glucose 121 H Lactic Acid Calcium 9.3 Total Bilirubin 0.3 AST 28 ALT 24 Alkaline Phosphatase 75 Total Protein 7.3 Albumin 3.8 Globulin 3.4 Albumin/Globulin Ratio 1.1 04/07/18 04/08/18 20:48 06:05 WBC 16.4 H RBC 4.44 Hgb 12.6 Hct 38.4 MCV 86.4 MCH 28.4 MCHC 32.9 L RDW 13.4 Plt Count 377 MPV 7.6 Neut % (Auto) 81.9 H Lymph % (Auto) 6.5 L [place] % (Auto) 10.8 H Eos % (Auto) 0.4 Baso % (Auto) 0.4 Neut # (Auto) 13.4 H Lymph # (Auto) 1.1 [place] # (Auto) 1.8 H Eos # (Auto) 0.1 Baso # (Auto) 0.1 Sodium Potassium Chloride Carbon Dioxide Anion Gap BUN Creatinine Est GFR ( Amer) Est GFR (Non-Af Amer) POC Glucose (mg/dL) Random Glucose Lactic Acid 1.1 Calcium Total Bilirubin AST ALT Alkaline Phosphatase Total Protein Albumin Globulin Albumin/Globulin Ratio Assessment & Plan - Assessment and Plan (Free Text) Plan: - NPO - Antibiotics as per ID - To OR for I&D
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
[2018-04-08 12:35] VITALS: BP 117/73; PULSE 93; RESP 18; TEMP 98.1
== END 2018-04-08 11:55 | disposition short-term general hospital (02) | DRG 753 ==
LOC: H.ER 00:27 → H.PSYCH 00:45 → H.STEP 04-07 13:30
PROVIDERS: ADMIT Psychiatry & Neurology Psychiatry; ATTEND Psychiatry & Neurology Psychiatry
PROC: GZ51ZZZ Individual Psychotherapy, Behavioral (ICD-10-PCS; principal; 2018-04-04)
PROC: GZ56ZZZ Individual Psychotherapy, Supportive (ICD-10-PCS; 2018-04-04)
DX: F31.9 Bipolar disorder, unspecified (principal); R45.851 Suicidal ideations; R44.0 Auditory hallucinations; Z91.19 Patient's noncompliance with other medical treatment and regimen; L02.414 Cutaneous abscess of left upper limb; F43.10 Post-traumatic stress disorder, unspecified; L03.114 Cellulitis of left upper limb; S51.812A Laceration without foreign body of left forearm, initial encounter; X78.1XXA Intentional self-harm by knife, initial encounter; Y93.9 Activity, unspecified; Y92.9 Unspecified place or not applicable; Z62.810 Personal history of physical and sexual abuse in childhood; Z79.899 Other long term (current) drug therapy; F17.210 Nicotine dependence, cigarettes, uncomplicated; F41.9 Anxiety disorder, unspecified; K29.70 Gastritis, unspecified, without bleeding; F12.10 Cannabis abuse, uncomplicated; F15.10 Other stimulant abuse, uncomplicated

== ENCOUNTER 2018-04-08 12:20 | Inpatient (IN) | payer OTHER ==
--- NOTE | 2018-04-08 13:05 | ED PDOC ---
HPI: General Adult Time Seen by Provider: 04/08/18 12:35 Chief Complaint (Nursing): Medical Clearance Chief Complaint (Provider): Medical clearance History Per: Patient History/Exam Limitations: no limitations Onset/Duration Of Symptoms: Days (x3-4) Current Symptoms Are (Timing): Still Present Additional Complaint(s): Ambrose Prieto is a 23 year old male, with a past medical history of depression and IVDA, who presents to the emergency department for evaluation of redness and swelling of wound to left forearm ongoing for x3-4 days. Patient was sent to the ED from [facility] for evaluation of wound. He has self inflicted cuts and stitches on left forearm. As per Shiv RN patient has an abscess that needs to be drained. He denies any fever, chills, chest pain, shortness of breath, weakness, numbness, tingling or other medical complaints. PMD: None provided. Past Medical History Reviewed: Historical Data, Nursing Documentation, Vital Signs - Medical History PMH: Anxiety, Depression, Gastritis Denies: Chronic Kidney Disease - Surgical History Surgical History: No Surg Hx - Family History Family History: States: Unknown Family Hx - Social History Current smoker - smoking cessation education provided: Yes (Heavy smoker >10 cigarretes daily) Alcohol: Occasional Drugs: Methamphetamine - Home Medications Home Medications: Ambulatory Orders Medication Instructions Recorded Amoxicillin/Clavulanate [Augmentin 1 tab PO Q12 tab 04/08/18 875 MG-125 MG Tab] QUEtiapine [SEROquel] 300 mg PO HS tab 04/08/18 QUEtiapine [Seroquel] 100 mg PO BID tab 04/08/18 - Allergies Allergies/Adverse Reactions: Allergies Allergy/AdvReac Type Severity Reaction Status Date / Time tramadol Allergy RASH Verified 04/04/18 03:32 Review of Systems ROS Statement: Except As Marked, All Systems Reviewed And Found Negative Constitutional: Negative for: Fever, Chills Cardiovascular: Negative for: Chest Pain Respiratory: Negative for: Shortness of Breath Musculoskeletal: Positive for: Arm Pain (left forearm swelling and redness) Neurological: Negative for: Weakness, Numbness (tingling) Physical Exam - Reviewed Nursing Documentation Reviewed: Yes Vital Signs Reviewed: Yes - Physical Exam Appears: Positive for: No Acute Distress Head Exam: Positive for: ATRAUMATIC, NORMAL INSPECTION, NORMOCEPHALIC Skin: Positive for: Normal Color, Warm, Dry Eye Exam: Positive for: Normal appearance, EOMI, PERRL Neck: Positive for: Normal, Painless ROM Cardiovascular/Chest: Positive for: Regular Rate, Rhythm. Negative for: Murmur Respiratory: Positive for: Normal Breath Sounds. Negative for: Respiratory Distress Gastrointestinal/Abdominal: Positive for: Normal Exam, Soft. Negative for: Tenderness Back: Positive for: Normal Inspection Extremity: Positive for: Swelling (From elbow to wrist edema, induration, erythema and fluctuance anteriorly. Sutures in place). Negative for: Normal ROM (Decreased ROM secondary to pain), Deformity Neurologic/Psych: Positive for: Alert, Oriented. Negative for: Motor/Sensory Deficits - Laboratory Results Result Diagrams: 04/08/18 13:22 04/08/18 13:22 Medical Decision Making Medical Decision Making: Time: 12:35 Initial Impression: Medical clearance Initial Plan: --Type and screen --EKG --CMP --VBG Shock Panel --CBC w/ differential --PTT --PT --Chest Portable [RAD] --Reevaluation 12:50 Patient was seen by Dr. Johnston and he will be taken to the OR. As per Dr. Johnston, he recommends Vancomycin. Scribe Attestation: Documented by Abhinav Monsivais, acting as a scribe for Allie Lin MD Provider Scribe Attestation: All medical record entries made by the Scribe were at my direction and personally dictated by me. I have reviewed the chart and agree that the record accurately reflects my personal performance of the history, physical exam, medical decision making, and the department course for this patient. I have also personally directed, reviewed, and agree with the discharge instructions and disposition. Disposition - Disposition Instructions: General (DC) Forms: [employer] ([place])
--- NOTE | 2018-04-08 13:24 | CP.PCM.HP ---
<Karen Myrick - Last Filed: 04/08/18 13:50> History of Present Illness - History of Present Illness History of Present Illness: 23 y/o male w/ hx of depression, multiple suicidal attempts, and self-harm who reports hearing voices that told him to kill himself. He states that he cut, then stabbed his left forearm several times. He does not remember when this happened, but that he was seen in [facility], where his cuts were sutured and he was prescribed an antibiotic. He c/o 9/10 pressure-like pain in left forearm, at the site of self-injury, associated w/ purulent discharge, subjective fevers and chills. He also reports that he continues to feel depressed and have suicidal ideation. He denies any other symptoms. PMD: none Pmhx: depression, suicidal attempts, self-mutilation, substance abuse HomeRx: denies SurgHx: denies SocialHx: Unemployed, homeless. Admits to meth, heroin, and marijuana use. Denies tobacco and etoh use. FamHx: non-contributory Allergies: Tramadol Next of Kin: none Code status: Full code Present on Admission - Present on Admission Any Indicators Present on Admission: No History of DVT/PE: No History of Uncontrolled Diabetes: No Urinary Catheter: No Decubitus Ulcer Present: No Review of Systems - Review of Systems All systems: reviewed and no additional remarkable complaints except - Constitutional Constitutional: Chills, Fever - Musculoskeletal Additional comments: left forearm pain - Psychiatric Psychiatric: Auditory Hallucinations, Depression, Hopelessness, Suicidal Ideation Past Patient History - Tetanus Immunizations Tetanus Immunization: Unknown - Past Social History Alcohol: Occasional Drugs: Methamphetamine - CARDIAC Hx Cardiac Disorders: No - PULMONARY Hx Respiratory Disorders: No - NEUROLOGICAL Hx Neurological Disorder: No - HEENT Hx HEENT Problems: No - RENAL Hx Chronic Kidney Disease: No - HEMATOLOGICAL/ONCOLOGICAL Hx Blood Disorders: No - INTEGUMENTARY Hx Dermatological Problems: No - MUSCULOSKELETAL/RHEUMATOLOGICAL Hx Musculoskeletal Disorders: No - GASTROINTESTINAL Hx Gastritis: Yes - PSYCHIATRIC Hx Anxiety: Yes Hx Depression: Yes - SURGICAL HISTORY Hx Surgeries: No - ANESTHESIA Hx Anesthesia: Yes Hx Anesthesia Reactions: No Hx Malignant Hyperthermia: No Meds Allergies/Adverse Reactions: Allergies Allergy/AdvReac Type Severity Reaction Status Date / Time tramadol Allergy RASH Verified 04/04/18 03:32 Physical Exam - Constitutional Appears: No Acute Distress - Head Exam Head Exam: ATRAUMATIC - Eye Exam Eye Exam: absent: Conjunctival injection - ENT Exam ENT Exam: Mucous Membranes Moist - Respiratory Exam Respiratory Exam: Clear to Auscultation Bilateral, NORMAL BREATHING PATTERN - Cardiovascular Exam Cardiovascular Exam: REGULAR RHYTHM, +S1, +S2 - GI/Abdominal Exam GI & Abdominal Exam: Normal Bowel Sounds, Soft. absent: Tenderness - Extremities Exam Additional comments: Left arm w/ large abscess, erythmatic, purulent and serous drainage. Tender to palpation. - Neurological Exam Neurological exam: Alert, Oriented x3 - Psychiatric Exam Psychiatric exam: Depressed - Skin Skin Exam: Dry, Warm Results - Vital Signs Recent Vital Signs: Last Vital Signs Temp 98.5 F 04/08/18 13:14 Pulse 93 H 04/08/18 13:14 Resp BP 112/61 04/08/18 13:14 Pulse Ox 100 04/08/18 13:14 - Labs Result Diagrams: 04/08/18 13:22 Assessment & Plan - Assessment and Plan (Free Text) Assessment: 23 y/o male w/ pmhx of depression, suicidal attempts, self-harm who is being admitted for management of a large left forearm abscess that resulted from self- inflicted trauma. Abscess w/ cellulitis of left forearm Wbc 15.3 ID consulted, Dr. Taveras following, appreciate recs; cont Vanc 1gm IV Q12 Surgery, Dr. Michel, following, appreciate recs; plans for possible I&D Blood cultures 04/06/2018 negative x2 for 48 hours Wound cultures pending Tetnus toxoid Depression w/ hx of suicide attempt 1:1 maintained Psychiatry consulted on board; appreciate recommendations Cont. Seroquel 100mg PO BID and Seroquel 300mg PO HS Diet Regular DVT prophylaxis SCDs PRN Ambulates Code Status Full code Decision To Admit - Pt Status Changed To: Hospital Disposition Of: Inpatient - Admit Certification Admit to Inpatient:: After my assessment, the patient will require hospitalization for at least two midnights. This is because of the severity of symptoms shown, intensity of services needed, and/or the medical risk in this patient being treated as an outpatient. - . Bed Request Type: Med/Surg Admitting Physician: Ximena Johnston <Ximena Johnston - Last Filed: 04/08/18 14:25> Results - Vital Signs Recent Vital Signs: Last Vital Signs Temp 98.5 F 04/08/18 13:14 Pulse 93 H 04/08/18 13:14 Resp BP 112/61 04/08/18 13:14 Pulse Ox 100 04/08/18 13:14 - Labs Result Diagrams: 04/08/18 13:22 04/08/18 13:22 Labs: Laboratory Results - last 24 hr 04/08/18 04/08/18 04/08/18 13:22 13:22 13:22 WBC 15.3 H RBC 4.11 L Hgb 11.7 L Hct 35.1 MCV 85.4 MCH 28.4 MCHC 33.2 RDW 13.4 Plt Count 376 MPV 7.9 Neut % (Auto) 78.5 H Lymph % (Auto) 8.8 L [place] % (Auto) 11.6 H Eos % (Auto) 0.2 Baso % (Auto) 0.9 Neut # (Auto) 12.0 H Lymph # (Auto) 1.3 [place] # (Auto) 1.8 H Eos # (Auto) 0.0 Baso # (Auto) 0.1 PT INR APTT pO2 VBG pH VBG pCO2 VBG HCO3 VBG Total CO2 VBG O2 Sat (Calc) VBG Base Excess VBG Potassium Glucose Lactate FiO2 Sodium 136 Potassium 4.3 Chloride 95 L Carbon Dioxide 27 Anion Gap 18 BUN 13 Creatinine 0.8 Est GFR ( Amer) > 60 Est GFR (Non-Af Amer) > 60 Random Glucose 97 Calcium 9.1 Total Bilirubin 0.3 AST 30 ALT 31 Alkaline Phosphatase 73 Total Protein 7.1 Albumin 3.8 Globulin 3.3 Albumin/Globulin Ratio 1.1 Venous Blood Potassium Blood Type O POSITIVE Antibody Screen Negative BBK History Checked No verified bt 04/08/18 04/08/18 13:22 13:28 WBC RBC Hgb Hct MCV MCH MCHC RDW Plt Count MPV Neut % (Auto) Lymph % (Auto) [place] % (Auto) Eos % (Auto) Baso % (Auto) Neut # (Auto) Lymph # (Auto) [place] # (Auto) Eos # (Auto) Baso # (Auto) PT 14.5 H INR 1.3 APTT 29.9 pO2 19 L VBG pH 7.37 VBG pCO2 50 VBG HCO3 25.1 VBG Total CO2 30.4 H VBG O2 Sat (Calc) 28.4 L VBG Base Excess 2.7 H VBG Potassium 4.1 Glucose 95 Lactate 1.1 FiO2 21.0 Sodium 133.0 Potassium Chloride 99.0 Carbon Dioxide Anion Gap BUN Creatinine Est GFR ( Amer) Est GFR (Non-Af Amer) Random Glucose Calcium Total Bilirubin AST ALT Alkaline Phosphatase Total Protein Albumin Globulin Albumin/Globulin Ratio Venous Blood Potassium 4.1 Blood Type Antibody Screen BBK History Checked Attending/Attestation - Attestation I have personally seen and examined this patient.: Yes I have fully participated in the care of the patient.: Yes I have reviewed all pertinent clinical information: Yes Notes (Text): Left Arm Cellulitis with abscess IV Drug Abuser Polysubstance Abuse Bipolar Dis/Schizophrenia/Depression - Blood and Wound c/s - cont IV Vanco - ID consulted - Surgery consulted- plan for Incision and drainage , keep Pt NPO - Tetanus Toxoid -Psych consult - cont Seroquel - 1:1 Obs for safety as pt is Suicidal
--- NOTE | 2018-04-08 13:26 | RAD ---
Date of service: 04/08/2018 HISTORY: Medical clearance COMPARISON: No prior. FINDINGS: LUNGS: The lungs are well inflated and clear. PLEURA: No pleural effusions or pneumothorax. CARDIOVASCULAR: The heart is normal in size. No aortic atherosclerotic calcifications present. OSSEOUS STRUCTURES: Within normal limits for the patient's age. VISUALIZED UPPER ABDOMEN: Normal. OTHER FINDINGS: None. IMPRESSION: No active pulmonary disease.
[2018-04-08 13:35] LABS: VENOUS BLOOD GAS BASE EXCESS 2.7 mmol/L (0.0-2.0); VENOUS BLOOD GAS PCO2 50 mmHg (40-60); VENOUS BLOOD GAS PO2 19 mm/Hg (30-55); VENOUS BLOOD PH 7.37 (7.32-7.43)
[2018-04-08 13:41] LABS: BASO # 0.1 K/uL (0.0-0.2); BASO % 0.9 % (0.0-2.0); EOS % 0.2 % (0.0-4.0); HEMOGLOBIN 11.7 g/dL (12.0-18.0); LYMPH # 1.3 K/uL (1.0-4.3); LYMPH % 8.8 % (20.0-40.0); MEAN CELL VOLUME 85.4 fl (80.0-94.0); MEAN CORPUSCULAR HEMOGLOBIN 28.4 pg (27.0-31.0); MEAN CORPUSCULAR HGB CONC 33.2 g/dL (33.0-37.0); MEAN PLATELET VOLUME 7.9 fl (7.2-11.7); MONO # 1.8 K/uL (0.0-0.8); MONO % 11.6 % (0.0-10.0); NEUT % 78.5 % (50.0-75.0); RBC 4.11 Mil/uL (4.40-5.90); RED CELL DISTRIBUTION WIDTH 13.4 % (11.5-14.5); WHITE BLOOD COUNT 15.3 K/uL (4.8-10.8)
[2018-04-08 13:47] LABS: INR 1.3; PROTHROMBIN TIME 14.5 Seconds (9.8-13.1)
[2018-04-08] MEDS ORDERED: DTap Vaccine 0.5 ml Vial IM ONE (13:49)
[2018-04-08 13:50] LABS: PARTIAL THROMBOPLASTIN TIME 29.9 Seconds (25.6-37.1)
[2018-04-08 14:00] LABS: ALB/GLOB RATIO 1.1 (1.0-2.1); ALBUMIN 3.8 g/dL (3.5-5.0); ALT/SGPT 31 U/L (21-72); AST/SGOT 30 U/L (17-59); BLOOD UREA NITROGEN 13 mg/dl (9-20); CALCIUM 9.1 mg/dL (8.4-10.2); GFR NON-AFRICAN AMERICAN > 60
[2018-04-08] MEDS ORDERED: Tdap Vaccine 0.5 ml Vial (10-64 yrs) IM ONE (14:00)
[2018-04-08] MEDS ORDERED: Succinylcholine Chloride 20 mg/ml Syr (5 ml) IV ONE (14:51)
[2018-04-08] MEDS ORDERED: Lidocaine 4% (Laryng-O-Jet) Kit MM ONE (14:51)
[2018-04-08] MEDS ORDERED: Propofol 10 mg/ml Inj (20 ML) ONE (14:51)
[2018-04-08] MEDS ORDERED: Rocuronium 10 mg/ml (5 ml) ONE (14:51)
[2018-04-08] MEDS ORDERED: Lactated Ringer's 1,000 ML IV ONE (15:12)
[2018-04-08] MEDS ORDERED: Ketamine 50 mg/ml Inj (10 ml) ONE (15:12)
[2018-04-08] MEDS ORDERED: Midazolam 2 MG/2 ML VIAL ONE (15:14)
[2018-04-08] MEDS ORDERED: Dexamethasone 4 mg/1 ml ONE (15:47)
[2018-04-08] MEDS ORDERED: Neostigmine 1:1000 (1 mg/ml) Inj ONE (15:51)
[2018-04-08] MEDS ORDERED: Oxycodone/Acetaminophen 5/325 mg Tab PO PRN (16:08)
[2018-04-08] MEDS ORDERED: Morphine 4 MG/ML VIAL IVP PRN (16:08)
[2018-04-08] MEDS ORDERED: HYDROmorphone 0.5 mg/0.5 ml ISec IVP PRN (16:12)
--- NOTE | 2018-04-08 16:20 | PCM.SURG1 ---
Surgeon's Initial Post Op Note - Surgeon's Notes Surgeon: Dr. Michel Chief Compliance Officer: Barbara Lancaster, PGY2; Koffi Nelson PGY2 Type of Anesthesia: General Endo Anesthesia Administered By: Dr. Sotomayor Pre-Operative Diagnosis: left forearm abscess Operative Findings: large collection of purulent fluid in the anterior proximal forearm Post-Operative Diagnosis: same Operation Performed: incision and drainage of the left forearm abscess Specimen/Specimens Removed: wound culture Estimated Blood Loss: EBL {In ML}: 15 Blood Products Given: N/A Post-Op Condition: Fair Date of Surgery/Procedure: 04/08/18 Time of Surgery/Procedure: 15:00
[2018-04-08] MEDS: Lactated Ringer's 1,000 ML IV SCH ×2 (18:39→19:20)
[2018-04-08] MEDS ORDERED: Influenza Vaccine 60 mcg/0.5 mL SYR (4YR UP) IM ONE ×2 (19:02→21:15)
[2018-04-08] MEDS ORDERED: Pneumococcal 23-Valent Vaccine IM ONE (19:02)
[2018-04-08] MEDS: Oxycodone/Acetaminophen 5/325 mg Tab PO PRN (22:19)
[2018-04-09 06:19] LABS: HEMOGLOBIN 11.5 g/dL (12.0-18.0); MEAN CELL VOLUME 85.4 fl (80.0-94.0); MEAN CORPUSCULAR HEMOGLOBIN 28.1 pg (27.0-31.0); MEAN CORPUSCULAR HGB CONC 32.8 g/dL (33.0-37.0); RBC 4.12 Mil/uL (4.40-5.90); RED CELL DISTRIBUTION WIDTH 13.7 % (11.5-14.5)
[2018-04-09 06:27] LABS: BLOOD UREA NITROGEN 13 mg/dl (9-20); CALCIUM 9.4 mg/dL (8.4-10.2); GFR NON-AFRICAN AMERICAN > 60
--- NOTE | 2018-04-09 07:31 | CP.PCM.PN ---
<MerchantJose - Last Filed: 04/09/18 07:29> Subjective - Date & Time of Evaluation Date of Evaluation: 04/09/18 Time of Evaluation: 07:29 - Subjective Subjective: Surgery Progress note Patient seen and examined at bedside. s/p I&D of left forearm. + Palpable pulses. Dressing clean, intact w/ some strikethrough. tolerating diet. denies nausea vomiting. + OOB and ambulating. Objective - Vital Signs/Intake and Output Vital Signs (last 24 hours): Temp Pulse Resp BP Pulse Ox 98 F 95 H 18 118/59 L 99 04/09/18 04:15 04/09/18 04:15 04/09/18 04:15 04/09/18 04:15 04/09/18 04:15 Intake and Output: 04/09/18 04/09/18 06:59 18:59 Intake Total 100 Balance 100 - Medications Medications: Current Medications Acetaminophen (Tylenol 325mg Tab) 650 mg PO Q6H PRN PRN Reason: Pain, Mild (1-3) Acetaminophen (Tylenol 325mg Tab) 975 mg PO Q4 PRN PRN Reason: Pain, severe (8-10) Enoxaparin Sodium (Lovenox) 40 mg SC DAILY [facility]; Protocol Vancomycin HCl 1 gm/ Sodium (Chloride) 250 mls @ 166.667 mls/hr IVPB Q12 [facility]; Protocol Last Admin: 04/08/18 22:23 Dose: 166.667 mls/hr Ibuprofen (Motrin Tab) 600 mg PO Q8 PRN PRN Reason: Fever >100.4 F Last Admin: 04/09/18 01:35 Dose: 600 mg Ketorolac Tromethamine (Toradol) 15 mg IVP Q6H PRN PRN Reason: Pain, severe (8-10) Morphine Sulfate (Morphine) 4 mg IVP Q4 PRN PRN Reason: Pain, severe (8-10) Nicotine (Nicoderm Cq) 1 patch TD DAILY [facility] Last Admin: 04/08/18 23:04 Dose: 1 patch Oxycodone/Acetaminophen (Percocet 5/325 Mg Tab) 1 tab PO Q4 PRN PRN Reason: Pain, Mild (1-3) Stop: 04/11/18 16:09 Oxycodone/Acetaminophen (Percocet 5/325 Mg Tab) 2 tab PO Q4 PRN PRN Reason: Pain, moderate (4-7) Stop: 04/11/18 16:09 Last Admin: 04/08/18 22:19 Dose: 2 tab Quetiapine Fumarate (Seroquel) 100 mg PO BID [facility] Quetiapine Fumarate (Seroquel) 300 mg PO HS [facility] Last Admin: 04/08/18 22:20 Dose: 300 mg - Labs Labs: 04/09/18 06:00 04/09/18 06:00 PT 14.5 Seconds (9.8-13.1) H 04/08/18 13:22 INR 1.3 04/08/18 13:22 APTT 29.9 Seconds (25.6-37.1) 04/08/18 13:22 - Constitutional Appears: Non-toxic, No Acute Distress, Unkempt - Head Exam Head Exam: ATRAUMATIC - Eye Exam Eye Exam: EOMI. absent: Scleral icterus - ENT Exam ENT Exam: Mucous Membranes Moist - Respiratory Exam Respiratory Exam: NORMAL BREATHING PATTERN. absent: Accessory Muscle Use, Respiratory Distress - Cardiovascular Exam Cardiovascular Exam: REGULAR RHYTHM. absent: Bradycardia, Tachycardia - GI/Abdominal Exam GI & Abdominal Exam: Soft. absent: Firm, Guarding, Rigid, Tenderness - Extremities Exam Additional comments: LUE dressing C/D/I minimal strikethrough. dressing to be changed later today Palpable Radial pulses - Neurological Exam Neurological Exam: Alert, Awake, Oriented x3 - Psychiatric Exam Psychiatric exam: Normal Affect - Skin Skin Exam: Warm Assessment and Plan - Assessment and Plan (Free Text) Assessment: 23M w/ LUE abscess s/p I&D POD#1 Plan: - dressing change later today - cultures pending - c/w abx - diet as tolerated - further recs per surgical attending PGY2 <Rodrigo Harvey - Last Filed: 04/09/18 09:31> Subjective - Subjective Subjective: seen at bedside, no overnight events. reports improved range of motion to left upper extremity. ext: s/p ID of left forearm abscess, +erythema, +swelling, no drainage -cont abx -local wound care Objective - Vital Signs/Intake and Output Vital Signs (last 24 hours): Temp Pulse Resp BP Pulse Ox 97.9 F 92 H 18 105/60 99 04/09/18 08:23 04/09/18 08:23 04/09/18 08:23 04/09/18 08:23 04/09/18 08:23 Intake and Output: 04/09/18 04/09/18 06:59 18:59 Intake Total 100 Balance 100 - Medications Medications: Current Medications Acetaminophen (Tylenol 325mg Tab) 650 mg PO Q6H PRN PRN Reason: Pain, Mild (1-3) Acetaminophen (Tylenol 325mg Tab) 975 mg PO Q4 PRN PRN Reason: Pain, severe (8-10) Enoxaparin Sodium (Lovenox) 40 mg SC DAILY [facility]; Protocol Last Admin: 04/09/18 08:14 Dose: 40 mg Vancomycin HCl 1 gm/ Sodium (Chloride) 250 mls @ 166.667 mls/hr IVPB Q12 [facility]; Protocol Last Admin: 04/09/18 08:32 Dose: 166.667 mls/hr Ibuprofen (Motrin Tab) 600 mg PO Q8 PRN PRN Reason: Fever >100.4 F Last Admin: 04/09/18 01:35 Dose: 600 mg Ketorolac Tromethamine (Toradol) 15 mg IVP Q6H PRN PRN Reason: Pain, severe (8-10) Morphine Sulfate (Morphine) 4 mg IVP Q4 PRN PRN Reason: Pain, severe (8-10) Nicotine (Nicoderm Cq) 1 patch TD DAILY [facility] Last Admin: 04/09/18 08:15 Dose: 1 patch Oxycodone/Acetaminophen (Percocet 5/325 Mg Tab) 1 tab PO Q4 PRN PRN Reason: Pain, Mild (1-3) Stop: 04/11/18 16:09 Oxycodone/Acetaminophen (Percocet 5/325 Mg Tab) 2 tab PO Q4 PRN PRN Reason: Pain, moderate (4-7) Stop: 04/11/18 16:09 Last Admin: 04/09/18 08:13 Dose: 2 tab Quetiapine Fumarate (Seroquel) 100 mg PO BID [facility] Last Admin: 04/09/18 08:15 Dose: 100 mg Quetiapine Fumarate (Seroquel) 400 mg PO HS [facility] - Labs Labs: 04/09/18 06:00 04/09/18 06:00 PT 14.5 Seconds (9.8-13.1) H 04/08/18 13:22 INR 1.3 04/08/18 13:22 APTT 29.9 Seconds (25.6-37.1) 04/08/18 13:22
--- NOTE | 2018-04-09 07:47 | CP.PCM.CON ---
History of Present Illness - History of Present Illness History of Present Illness: Psychiatry consult note CC: "I'm stll hearing voices." HPI: 23 yo male w/ h/o Bipolar Disorder w/ Psychotic Features, admitted to [facility] from psychiatry for worsening L arm cellulitis/abscess s/p cutting himself in his arm. Patient continues to report depression, anxiety, w/ continued AH and CAH telling him to kill himself. Patient reports that he prefers dosing Seroquel 3 times a day due to concerns that his medications does not work throughout the day, unless dosed frequently. PMHx: Acute left arm cellulitis/ abscess s/p I & D PPHx: H/o prior suicide attempts; h/o Bipolar Disorder SHx: Homeless, unemployed, h/o Meth, heroin and marijuana use/ MSE: A + O x 3, calm, cooperative, thought process-linear/coherent, thought content- no delusions, +CAH, denies acute SI, but reports feeling greatly disturbed by CAH, no HI; improving I/J Impression: 23 yo male w/ h/o Bipolar Disorder w/ Psychotic Features, continues to be acutely psychotic and an acute danger to self. -Increase Seroquel -Start [place]; patient has a h/o treatment w/ [place] in the past; will check [place] level in 5 days -Continue 1:1 for safety -Patient would benefit from psychiatric admission when he is medically stable and no longer requires IV antibiotics Past Patient History - Tetanus Immunizations Tetanus Immunization: Unknown - Past Medical History & Family History Past Medical History?: No - Past Social History Alcohol: Occasional Drugs: Methamphetamine - CARDIAC Hx Cardiac Disorders: No - PULMONARY Hx Respiratory Disorders: No - NEUROLOGICAL Hx Neurological Disorder: No - HEENT Hx HEENT Problems: No - RENAL Hx Chronic Kidney Disease: No - HEMATOLOGICAL/ONCOLOGICAL Hx Blood Disorders: No - INTEGUMENTARY Hx Dermatological Problems: No - MUSCULOSKELETAL/RHEUMATOLOGICAL Hx Musculoskeletal Disorders: No - GASTROINTESTINAL Hx Gastritis: Yes - PSYCHIATRIC Hx Anxiety: Yes Hx Depression: Yes - SURGICAL HISTORY Hx Surgeries: No - ANESTHESIA Hx Anesthesia: Yes Hx Anesthesia Reactions: No Hx Malignant Hyperthermia: No Meds Allergies/Adverse Reactions: Allergies Allergy/AdvReac Type Severity Reaction Status Date / Time tramadol Allergy RASH Verified 04/04/18 03:32 - Medications Medications: Current Medications Acetaminophen (Tylenol 325mg Tab) 650 mg PO Q6H PRN PRN Reason: Pain, Mild (1-3) Acetaminophen (Tylenol 325mg Tab) 975 mg PO Q4 PRN PRN Reason: Pain, severe (8-10) Enoxaparin Sodium (Lovenox) 40 mg SC DAILY [facility]; Protocol Vancomycin HCl 1 gm/ Sodium (Chloride) 250 mls @ 166.667 mls/hr IVPB Q12 [facility]; Protocol Last Admin: 04/08/18 22:23 Dose: 166.667 mls/hr Ibuprofen (Motrin Tab) 600 mg PO Q8 PRN PRN Reason: Fever >100.4 F Last Admin: 04/09/18 01:35 Dose: 600 mg Ketorolac Tromethamine (Toradol) 15 mg IVP Q6H PRN PRN Reason: Pain, severe (8-10) Morphine Sulfate (Morphine) 4 mg IVP Q4 PRN PRN Reason: Pain, severe (8-10) Nicotine (Nicoderm Cq) 1 patch TD DAILY [facility] Last Admin: 04/08/18 23:04 Dose: 1 patch Oxycodone/Acetaminophen (Percocet 5/325 Mg Tab) 1 tab PO Q4 PRN PRN Reason: Pain, Mild (1-3) Stop: 04/11/18 16:09 Oxycodone/Acetaminophen (Percocet 5/325 Mg Tab) 2 tab PO Q4 PRN PRN Reason: Pain, moderate (4-7) Stop: 04/11/18 16:09 Last Admin: 04/08/18 22:19 Dose: 2 tab Quetiapine Fumarate (Seroquel) 100 mg PO BID [facility] Quetiapine Fumarate (Seroquel) 300 mg PO HS [facility] Last Admin: 04/08/18 22:20 Dose: 300 mg Results - Vital Signs Recent Vital Signs: Last Vital Signs Temp 98 F 04/09/18 04:15 Pulse 95 H 04/09/18 04:15 Resp 18 04/09/18 04:15 BP 118/59 L 04/09/18 04:15 Pulse Ox 99 04/09/18 04:15 - Labs Result Diagrams: 04/09/18 06:00 04/09/18 06:00 Labs: Laboratory Results - last 24 hr 04/08/18 04/08/18 04/08/18 13:22 13:22 13:22 WBC 15.3 H RBC 4.11 L Hgb 11.7 L Hct 35.1 MCV 85.4 MCH 28.4 MCHC 33.2 RDW 13.4 Plt Count 376 MPV 7.9 Neut % (Auto) 78.5 H Lymph % (Auto) 8.8 L [place] % (Auto) 11.6 H Eos % (Auto) 0.2 Baso % (Auto) 0.9 Neut # (Auto) 12.0 H Lymph # (Auto) 1.3 [place] # (Auto) 1.8 H Eos # (Auto) 0.0 Baso # (Auto) 0.1 PT INR APTT pO2 VBG pH VBG pCO2 VBG HCO3 VBG Total CO2 VBG O2 Sat (Calc) VBG Base Excess VBG Potassium Glucose Lactate FiO2 Sodium 136 Potassium 4.3 Chloride 95 L Carbon Dioxide 27 Anion Gap 18 BUN 13 Creatinine 0.8 Est GFR ( Amer) > 60 Est GFR (Non-Af Amer) > 60 Random Glucose 97 Calcium 9.1 Total Bilirubin 0.3 AST 30 ALT 31 Alkaline Phosphatase 73 Total Protein 7.1 Albumin 3.8 Globulin 3.3 Albumin/Globulin Ratio 1.1 Venous Blood Potassium Blood Type O POSITIVE Blood Type Confirm Antibody Screen Negative BBK History Checked No verified bt 04/08/18 04/08/18 04/08/18 13:22 13:28 14:29 WBC RBC Hgb Hct MCV MCH MCHC RDW Plt Count MPV Neut % (Auto) Lymph % (Auto) [place] % (Auto) Eos % (Auto) Baso % (Auto) Neut # (Auto) Lymph # (Auto) [place] # (Auto) Eos # (Auto) Baso # (Auto) PT 14.5 H INR 1.3 APTT 29.9 pO2 19 L VBG pH 7.37 VBG pCO2 50 VBG HCO3 25.1 VBG Total CO2 30.4 H VBG O2 Sat (Calc) 28.4 L VBG Base Excess 2.7 H VBG Potassium 4.1 Glucose 95 Lactate 1.1 FiO2 21.0 Sodium 133.0 Potassium Chloride 99.0 Carbon Dioxide Anion Gap BUN Creatinine Est GFR ( Amer) Est GFR (Non-Af Amer) Random Glucose Calcium Total Bilirubin AST ALT Alkaline Phosphatase Total Protein Albumin Globulin Albumin/Globulin Ratio Venous Blood Potassium 4.1 Blood Type Blood Type Confirm O POSITIVE Antibody Screen BBK History Checked 04/09/18 04/09/18 06:00 06:00 WBC 20.0 H RBC 4.12 L Hgb 11.5 L Hct 35.2 MCV 85.4 MCH 28.1 MCHC 32.8 L RDW 13.7 Plt Count 403 H MPV Neut % (Auto) Lymph % (Auto) [place] % (Auto) Eos % (Auto) Baso % (Auto) Neut # (Auto) Lymph # (Auto) [place] # (Auto) Eos # (Auto) Baso # (Auto) PT INR APTT pO2 VBG pH VBG pCO2 VBG HCO3 VBG Total CO2 VBG O2 Sat (Calc) VBG Base Excess VBG Potassium Glucose Lactate FiO2 Sodium 140 Potassium 4.3 Chloride 100 Carbon Dioxide 26 Anion Gap 18 BUN 13 Creatinine 0.8 Est GFR ( Amer) > 60 Est GFR (Non-Af Amer) > 60 Random Glucose 125 H Calcium 9.4 Total Bilirubin AST ALT Alkaline Phosphatase Total Protein Albumin Globulin Albumin/Globulin Ratio Venous Blood Potassium Blood Type Blood Type Confirm Antibody Screen BBK History Checked
--- NOTE | 2018-04-09 08:11 | OP ---
PROCEDURE DATE: 04/08/18 PREOPERATIVE DIAGNOSIS: Left forearm abscess. POSTOPERATIVE DIAGNOSIS: Left forearm abscess. PROCEDURE: Incision and drainage of the left forearm abscess. SURGEON: Santos Michel MD HEALTH CARE ASSISTANT: Barbara Lancaster DO ANESTHESIA ADMINISTERED BY: Jimbo Sotomayor MD TYPE OF ANESTHESIA: General endotracheal intubation. INTRAVENOUS FLUID INTAKE: Crystalloid. ESTIMATED BLOOD LOSS: 15 mL. INTRAOPERATIVE FINDINGS: Large left forearm abscess and drained 75 mL of purulent material. SPECIMEN: Wound culture. BRIEF HISTORY: Mr. Prieto is a 23-year-old gentleman who was admitted to [facility] and was found to have left forearm abscess after injecting some drugs into his forearm. The patient was evaluated, and incision and drainage was required for the patient. All the risks and benefits of the procedure were explained to the patient. With the patient having a full understanding of all the risks and benefits involved, informed consent was obtained, and the patient was taken to the operating room for above-stated procedure. DESCRIPTION OF PROCEDURE: The patient was brought into the operating room and placed supine on the operating room table. Bilateral Flowtron boots were applied to the patient's lower extremities. After successful induction of anesthesia and successful endotracheal intubation by the anesthesia team, the patient's left forearm arm was prepped and draped in a standard surgical fashion. Prior to the beginning of procedure, a time-out was called in the room and everyone in the room were in agreement. Using a 15-blade scalpel knife, approximately 3-cm incision was made in a right on top of the fluctuant area. Subsequent to that, we were able to immediately visualize purulent material draining. Wound cultures were obtained. Subsequent to that, the abscess was drained using blunt finger dissection. The loculations of the abscess cavity were broken down. Subsequent to that, using sterile saline, the abscess cavity was copiously irrigated, and the fluid was suctioned out. At this point in time, the abscess cavity was packed with 1-inch packing. Subsequent to that, the patient's left forearm was washed and dried, and a clean dressing with 4x4s and some tape was applied to the site of the incision. The patient was successfully extubated by the anesthesia team, transferred to a stretcher and taken to the recovery room in a stable condition. At the end of the procedure, all instrument counts, needles, and sponges were correct. Santos Michel MD [facility] # [id number]
[2018-04-09] MEDS: Oxycodone/Acetaminophen 5/325 mg Tab PO PRN ×2 (08:13→16:03)
[2018-04-09] MEDS: Enoxaparin 40 mg Syringe SC SCH (08:14)
--- NOTE | 2018-04-09 08:14 | CP.PCM.PN ---
<Karen Myrick - Last Filed: 04/09/18 10:08> Subjective - Date & Time of Evaluation Date of Evaluation: 04/09/18 Time of Evaluation: 08:14 - Subjective Subjective: Charts, labs, nurse notes reviewed. Patient seen and examined at bedside. Patient denies pain/drainage at wound site today. He endorses having an appetite and improvement in mood. Objective - Vital Signs/Intake and Output Vital Signs (last 24 hours): Temp Pulse Resp BP Pulse Ox 98 F 95 H 18 118/59 L 99 04/09/18 04:15 04/09/18 04:15 04/09/18 04:15 04/09/18 04:15 04/09/18 04:15 Intake and Output: 04/09/18 04/09/18 06:59 18:59 Intake Total 100 Balance 100 - Medications Medications: Current Medications Acetaminophen (Tylenol 325mg Tab) 650 mg PO Q6H PRN PRN Reason: Pain, Mild (1-3) Acetaminophen (Tylenol 325mg Tab) 975 mg PO Q4 PRN PRN Reason: Pain, severe (8-10) Enoxaparin Sodium (Lovenox) 40 mg SC DAILY [facility]; Protocol Vancomycin HCl 1 gm/ Sodium (Chloride) 250 mls @ 166.667 mls/hr IVPB Q12 [facility]; Protocol Last Admin: 04/08/18 22:23 Dose: 166.667 mls/hr Ibuprofen (Motrin Tab) 600 mg PO Q8 PRN PRN Reason: Fever >100.4 F Last Admin: 04/09/18 01:35 Dose: 600 mg Ketorolac Tromethamine (Toradol) 15 mg IVP Q6H PRN PRN Reason: Pain, severe (8-10) Morphine Sulfate (Morphine) 4 mg IVP Q4 PRN PRN Reason: Pain, severe (8-10) Nicotine (Nicoderm Cq) 1 patch TD DAILY [facility] Last Admin: 04/08/18 23:04 Dose: 1 patch Oxycodone/Acetaminophen (Percocet 5/325 Mg Tab) 1 tab PO Q4 PRN PRN Reason: Pain, Mild (1-3) Stop: 04/11/18 16:09 Oxycodone/Acetaminophen (Percocet 5/325 Mg Tab) 2 tab PO Q4 PRN PRN Reason: Pain, moderate (4-7) Stop: 04/11/18 16:09 Last Admin: 04/08/18 22:19 Dose: 2 tab Quetiapine Fumarate (Seroquel) 100 mg PO BID [facility] Quetiapine Fumarate (Seroquel) 400 mg PO HS [facility] - Labs Labs: 04/09/18 06:00 04/09/18 06:00 PT 14.5 Seconds (9.8-13.1) H 04/08/18 13:22 INR 1.3 04/08/18 13:22 APTT 29.9 Seconds (25.6-37.1) 04/08/18 13:22 - Constitutional Appears: No Acute Distress - ENT Exam ENT Exam: Mucous Membranes Moist - Respiratory Exam Respiratory Exam: Clear to Ausculation Bilateral, NORMAL BREATHING PATTERN - Cardiovascular Exam Cardiovascular Exam: REGULAR RHYTHM, +S1, +S2 - GI/Abdominal Exam GI & Abdominal Exam: Soft, Normal Bowel Sounds. absent: Tenderness - Extremities Exam Additional comments: left arm bandaged - Neurological Exam Neurological Exam: Alert, Awake - Psychiatric Exam Psychiatric exam: Normal Affect, Normal Mood. absent: Depressed - Skin Skin Exam: Dry, Warm Assessment and Plan - Assessment and Plan (Free Text) Assessment: Assessment: 23 y/o male w/ pmhx of depression, suicidal attempts, self-harm who is being admitted for management of a large left forearm abscess that resulted from self- inflicted trauma, now s/pod#1 of I&D, on Vanc 1gm IV Q12 and given Tetnus vaccine. Abscess w/ cellulitis of left forearm S/POD#1 of I&D Leukocytosis; WBC trending up; 20.0 today ID consulted, Dr. Taveras following, appreciate recs; cont Vanc 1gm IV Q12 Surgery, Dr. Michel, following, appreciate recs Blood cultures 04/06/2018 negative x2 for 72 hours 04/08/18Wound cultures: moderate gram+ cocci Tetnus toxoid given Depression w/ hx of suicide attempt 1:1 maintained Psychiatry consulted on board; appreciate recommendations Cont. Seroquel Diet Regular DVT prophylaxis SCDs PRN Ambulates Code Status Full code <[email or web address] Orly - Last Filed: 04/09/18 16:36> Objective - Vital Signs/Intake and Output Vital Signs (last 24 hours): Temp Pulse Resp BP Pulse Ox 98 F 90 20 126/62 99 04/09/18 13:00 04/09/18 13:00 04/09/18 13:00 04/09/18 13:00 04/09/18 13:00 Intake and Output: 04/09/18 04/09/18 06:59 18:59 Intake Total 100 Balance 100 - Medications Medications: Current Medications Acetaminophen (Tylenol 325mg Tab) 650 mg PO Q6H PRN PRN Reason: Pain, Mild (1-3) Acetaminophen (Tylenol 325mg Tab) 975 mg PO Q4 PRN PRN Reason: Pain, severe (8-10) Enoxaparin Sodium (Lovenox) 40 mg SC DAILY [facility]; Protocol Last Admin: 04/09/18 08:14 Dose: 40 mg Vancomycin HCl 1 gm/ Sodium (Chloride) 250 mls @ 166.667 mls/hr IVPB Q12 [facility]; Protocol Last Admin: 04/09/18 08:32 Dose: 166.667 mls/hr Ibuprofen (Motrin Tab) 600 mg PO Q8 PRN PRN Reason: Fever >100.4 F Last Admin: 04/09/18 01:35 Dose: 600 mg Ketorolac Tromethamine (Toradol) 15 mg IVP Q6H PRN PRN Reason: Pain, severe (8-10) [place] Carbonate ([place] Carbonate 300mg) 300 mg PO BID [facility] Morphine Sulfate (Morphine) 4 mg IVP Q4 PRN PRN Reason: Pain, severe (8-10) Nicotine (Nicoderm Cq) 1 patch TD DAILY [facility] Last Admin: 04/09/18 08:15 Dose: 1 patch Oxycodone/Acetaminophen (Percocet 5/325 Mg Tab) 1 tab PO Q4 PRN PRN Reason: Pain, Mild (1-3) Stop: 04/11/18 16:09 Oxycodone/Acetaminophen (Percocet 5/325 Mg Tab) 2 tab PO Q4 PRN PRN Reason: Pain, moderate (4-7) Stop: 04/11/18 16:09 Last Admin: 04/09/18 08:13 Dose: 2 tab Quetiapine Fumarate (Seroquel) 100 mg PO DAILY [facility] Quetiapine Fumarate (Seroquel) 200 mg PO DAILY@1300 [facility] Last Admin: 04/09/18 14:08 Dose: 200 mg Quetiapine Fumarate (Seroquel) 300 mg PO HS [facility] - Labs Labs: 04/09/18 06:00 04/09/18 06:00 PT 14.5 Seconds (9.8-13.1) H 04/08/18 13:22 INR 1.3 04/08/18 13:22 APTT 29.9 Seconds (25.6-37.1) 04/08/18 13:22 Attending/Attestation - Attestation I have personally seen and examined this patient.: Yes I have fully participated in the care of the patient.: Yes I have reviewed all pertinent clinical information, including history, physical exam and plan: Yes Notes (Text): Left Arm Cellulitis with abscess s/p Incision and Drainage IV Drug Abuser Polysubstance Abuse Bipolar Dis/Schizophrenia/Depression - Blood c/s : neg so far - Wound c/s: Gram + Cocci - cont IV Vanco, Vanco trough - ID consulted- DR Taveras following -Psych consulted - cont Seroquel - 1:1 Obs for safety as pt is Suicidal
--- NOTE | 2018-04-09 14:50 | CP.PCM.CON ---
History of Present Illness - History of Present Illness History of Present Illness: 23 yo male with Hx of depression and multiple suicide attempts was admitted to psych for depression ID consulted for left arm cellulitis present on admission Recent hx of Left arm lacerations secondary to suicide attempt as well as attempt to inject in nearby veins surgery on board IV antibiotic in progress Review of Systems - Review of Systems All systems: reviewed and no additional remarkable complaints except - Constitutional Constitutional: As Per HPI - EENT Nose/Mouth/Throat: absent: As Per HPI, Epistaxis, Nasal Congestion, Nasal Discharge, Nasal Obstruction, Nasal Trauma, Nose Pain, Post Nasal Drip, Sinus Pain, Sinus Pressure, Bleeding Gums, Change in Voice, Dental Pain, Dry Mouth, Dysphagia, Halitosis, Hoarsness, Lip Swelling, Mouth Lesions, Mouth Pain, Odynophagia, Sore Throat, Throat Swelling, Tongue Swelling, Facial Pain, Neck Pain, Neck Mass, Other - Cardiovascular Cardiovascular: absent: As Per HPI, Acrocyanosis, Chest Pain, Chest Pain at Rest, Chest Pain with Activity, Claudication, Diaphoresis, Dyspnea, Dyspnea on Exertion, Edema, Irregular Heart Rhythm, Pain Radiating to Arm/Neck/Jaw, Leg Edema, Leg Ulcers, Lightheadedness, Orthopnea, Palpitations, Paroxysmal Nocturnal Dyspnea, Pedal Edema, Radiating Pain, Rapid Heart Rate, Slow Heart Rate, Syncope, Other - Respiratory Respiratory: absent: As Per HPI, Cough, Dyspnea, Hemoptysis, Dyspnea on Exertion, Wheezing, Snoring, Stridor, Pain on Inspiration, Chest Congestion, Excessive Mucous Production, Change in Mucous Color, Pain with Coughing, Other - Gastrointestinal Gastrointestinal: absent: As Per HPI, Abdominal Pain, Belching, Bloating, Change in Bowel Habits, Change in Stool Character, Coffee Ground Emesis, Constipation, Cramping, Diarrhea, Dyspepsia, Dysphagia, Early Satiety, Excessive Flatus, Fecal Incontinence, Heartburn, Hematemesis, Hematochezia, Loose Stools, Melena, N ausea, Odynophagia, Temesmus, Vomiting, Other - Genitourinary Genitourinary: absent: As Per HPI, Change in Urinary Stream, Difficulty Urinating, Dysuria, Flank Pain, Hematuria, Pyuria, Nocturia, Urinary Incontinence, Urinary Frequency, Urinary Hesitance, Urinary Urgency, Voiding Freq/Small Amts, Freq UTI, Hx Renal/Bladder Calculi, Hx /Renal Surgery, Bladder Distension, Other - Musculoskeletal Musculoskeletal: As Per HPI - Integumentary Integumentary: As Per HPI, Skin Pain, Swelling, Wounds - Neurological Neurological: absent: As Per HPI, Abnormal Gait, Abnormal Hearing, Abnormal Movements, Abnormal Speech, Behavioral Changes, Burning Sensations, Confusion, Convulsions, Disequilibrium, Dizziness, Numbness, Focal Weakness, Frequent Fa lls, Headaches, Lack of Coordination, Loss of Vision, Memory Loss, Paresthesias, Radicular Pain, Restless Legs, Sensory Deficit, Syncope, Tingling, Tremor, Vertigo, Weakness, Other Visual Disturbances, Other Review of Systems - Constitutional Constitutional: As Per HPI. absent: Anorexia, Chills, Daytime Sleepiness, Excessive Sweating, Fatigue, Fever, Frequent Falls, Headache, Increased Appetite, Lethargy, Malaise, Night Sweats, Snoring, Sleep Apnea, Weight Gain, Weight Loss, Weakness, Other Past Patient History - Tetanus Immunizations Tetanus Immunization: Unknown - Past Medical History & Family History Past Medical History?: No - Past Social History Alcohol: Occasional Drugs: Methamphetamine - CARDIAC Hx Cardiac Disorders: No - PULMONARY Hx Respiratory Disorders: No - NEUROLOGICAL Hx Neurological Disorder: No - HEENT Hx HEENT Problems: No - RENAL Hx Chronic Kidney Disease: No - HEMATOLOGICAL/ONCOLOGICAL Hx Blood Disorders: No - INTEGUMENTARY Hx Dermatological Problems: No - MUSCULOSKELETAL/RHEUMATOLOGICAL Hx Musculoskeletal Disorders: No - GASTROINTESTINAL Hx Gastritis: Yes - PSYCHIATRIC Hx Anxiety: Yes Hx Depression: Yes - SURGICAL HISTORY Hx Surgeries: No - ANESTHESIA Hx Anesthesia: Yes Hx Anesthesia Reactions: No Hx Malignant Hyperthermia: No Meds Allergies/Adverse Reactions: Allergies Allergy/AdvReac Type Severity Reaction Status Date / Time tramadol Allergy RASH Verified 04/04/18 03:32 - Medications Medications: Current Medications Acetaminophen (Tylenol 325mg Tab) 650 mg PO Q6H PRN PRN Reason: Pain, Mild (1-3) Acetaminophen (Tylenol 325mg Tab) 975 mg PO Q4 PRN PRN Reason: Pain, severe (8-10) Enoxaparin Sodium (Lovenox) 40 mg SC DAILY [facility]; Protocol Last Admin: 04/09/18 08:14 Dose: 40 mg Vancomycin HCl 1 gm/ Sodium (Chloride) 250 mls @ 166.667 mls/hr IVPB Q12 [facility]; Protocol Last Admin: 04/09/18 08:32 Dose: 166.667 mls/hr Ibuprofen (Motrin Tab) 600 mg PO Q8 PRN PRN Reason: Fever >100.4 F Last Admin: 04/09/18 01:35 Dose: 600 mg Ketorolac Tromethamine (Toradol) 15 mg IVP Q6H PRN PRN Reason: Pain, severe (8-10) [place] Carbonate ([place] Carbonate 300mg) 300 mg PO BID [facility] Morphine Sulfate (Morphine) 4 mg IVP Q4 PRN PRN Reason: Pain, severe (8-10) Nicotine (Nicoderm Cq) 1 patch TD DAILY [facility] Last Admin: 04/09/18 08:15 Dose: 1 patch Oxycodone/Acetaminophen (Percocet 5/325 Mg Tab) 1 tab PO Q4 PRN PRN Reason: Pain, Mild (1-3) Stop: 04/11/18 16:09 Oxycodone/Acetaminophen (Percocet 5/325 Mg Tab) 2 tab PO Q4 PRN PRN Reason: Pain, moderate (4-7) Stop: 04/11/18 16:09 Last Admin: 04/09/18 08:13 Dose: 2 tab Quetiapine Fumarate (Seroquel) 100 mg PO DAILY [facility] Quetiapine Fumarate (Seroquel) 200 mg PO DAILY@1300 [facility] Last Admin: 04/09/18 14:08 Dose: 200 mg Quetiapine Fumarate (Seroquel) 300 mg PO HS [facility] Physical Exam - Constitutional Appears: No Acute Distress, Chronically Ill - Head Exam Head Exam: ATRAUMATIC, NORMOCEPHALIC - Eye Exam Eye Exam: absent: Scleral icterus - ENT Exam ENT Exam: Mucous Membranes Dry, Normal External Ear Exam, Normal Oropharynx - Neck Exam Neck exam: Negative for: Lymphadenopathy - Respiratory Exam Respiratory Exam: Decreased Breath Sounds, Clear to Auscultation Bilateral - Cardiovascular Exam Cardiovascular Exam: REGULAR RHYTHM, +S1, +S2 - GI/Abdominal Exam GI & Abdominal Exam: Diminished Bowel Sounds, Soft. absent: Tenderness - Rectal Exam Rectal Exam: Deferred - Exam Exam: NORMAL INSPECTION - Extremities Exam Extremities exam: Negative for: pedal edema Additional comments: swelling left arm severe - Back Exam Back exam: absent: CVA tenderness (L), CVA tenderness (R) - Neurological Exam Neurological exam: Alert, CN II-XII Intact, Oriented x3, Reflexes Normal - Psychiatric Exam Psychiatric exam: Depressed, Normal Mood Results - Vital Signs Recent Vital Signs: Last Vital Signs Temp 97.9 F 04/09/18 08:23 Pulse 92 H 04/09/18 08:23 Resp 18 04/09/18 08:23 BP 105/60 04/09/18 08:23 Pulse Ox 99 04/09/18 08:23 - Labs Result Diagrams: 04/09/18 06:00 04/09/18 06:00 Labs: Laboratory Results - last 24 hr 04/08/18 04/09/18 04/09/18 14:29 06:00 06:00 WBC 20.0 H RBC 4.12 L Hgb 11.5 L Hct 35.2 MCV 85.4 MCH 28.1 MCHC 32.8 L RDW 13.7 Plt Count 403 H Sodium 140 Potassium 4.3 Chloride 100 Carbon Dioxide 26 Anion Gap 18 BUN 13 Creatinine 0.8 Est GFR ( Amer) > 60 Est GFR (Non-Af Amer) > 60 Random Glucose 125 H Calcium 9.4 HIV-1 Ab Rapid Screen Blood Type Confirm O POSITIVE 04/09/18 06:00 WBC RBC Hgb Hct MCV MCH MCHC RDW Plt Count Sodium Potassium Chloride Carbon Dioxide Anion Gap BUN Creatinine Est GFR ( Amer) Est GFR (Non-Af Amer) Random Glucose Calcium HIV-1 Ab Rapid Screen Non reactive Blood Type Confirm Assessment & Plan (1) Cellulitis of arm, left Status: Acute - Assessment and Plan (Free Text) Assessment: wound- + cocci rx in progress surgery on board went to OR
[2018-04-10] MEDS ORDERED: Tdap Vaccine 0.5 ml Vial (10-64 yrs) IM ONE (08:45)
[2018-04-10 08:46] LABS: BASO # 0.1 K/uL (0.0-0.2); BASO % 1.3 % (0.0-2.0); EOS # 0.1 K/uL (0.0-0.7); EOS % 1.3 % (0.0-4.0); HEMOGLOBIN 11.2 g/dL (12.0-18.0); LYMPH # 2.5 K/uL (1.0-4.3); LYMPH % 26.4 % (20.0-40.0); MEAN CELL VOLUME 86.4 fl (80.0-94.0); MEAN CORPUSCULAR HEMOGLOBIN 28.1 pg (27.0-31.0); MEAN CORPUSCULAR HGB CONC 32.5 g/dL (33.0-37.0); MEAN PLATELET VOLUME 7.9 fl (7.2-11.7); MONO # 0.9 K/uL (0.0-0.8); MONO % 9.4 % (0.0-10.0); NEUT # 5.9 K/uL (1.8-7.0); NEUT % 61.6 % (50.0-75.0); NRBC % 0.1 % (0.0-0.0); RBC 3.98 Mil/uL (4.40-5.90); RED CELL DISTRIBUTION WIDTH 13.8 % (11.5-14.5); WHITE BLOOD COUNT 9.6 K/uL (4.8-10.8)
[2018-04-10] MEDS: Enoxaparin 40 mg Syringe SC SCH (08:52)
[2018-04-10] MEDS ORDERED: Oxycodone/Acetaminophen 5/325 mg Tab PO SCH (10:00)
--- NOTE | 2018-04-10 10:00 | CP.PCM.PN ---
Subjective - Date & Time of Evaluation Date of Evaluation: 04/10/18 Time of Evaluation: 09:57 - Subjective Subjective: seen at bedside, no overnight events. pt reports improved pain to left upper extremity. Afebrile. Objective - Vital Signs/Intake and Output Vital Signs (last 24 hours): Temp Pulse Resp BP Pulse Ox 98.2 F 91 H 20 107/63 100 04/10/18 08:34 04/10/18 08:34 04/10/18 08:34 04/10/18 08:34 04/10/18 08:34 - Medications Medications: Current Medications Acetaminophen (Tylenol 325mg Tab) 650 mg PO Q6H PRN PRN Reason: Pain, Mild (1-3) Enoxaparin Sodium (Lovenox) 40 mg SC DAILY [facility]; Protocol Last Admin: 04/10/18 08:52 Dose: 40 mg Vancomycin HCl 1 gm/ Sodium (Chloride) 250 mls @ 166.667 mls/hr IVPB Q12 [facility]; Protocol Last Admin: 04/09/18 22:00 Dose: 166.667 mls/hr Ketorolac Tromethamine (Toradol) 15 mg IVP Q6H PRN PRN Reason: Pain, moderate (4-7) [place] Carbonate ([place] Carbonate 300mg) 300 mg PO BID [facility] Last Admin: 04/10/18 08:51 Dose: 300 mg Nicotine (Nicoderm Cq) 1 patch TD DAILY [facility] Last Admin: 04/10/18 08:52 Dose: 1 patch Oxycodone/Acetaminophen (Percocet 5/325 Mg Tab) 1 tab PO Q6 PRN PRN Reason: Pain, severe (8-10) Stop: 04/13/18 10:01 Quetiapine Fumarate (Seroquel) 100 mg PO DAILY [facility] Last Admin: 04/10/18 08:53 Dose: 100 mg Quetiapine Fumarate (Seroquel) 200 mg PO DAILY@1300 [facility] Last Admin: 04/09/18 14:08 Dose: 200 mg Quetiapine Fumarate (Seroquel) 300 mg PO HS [facility] Last Admin: 04/09/18 22:58 Dose: 300 mg - Labs Labs: 04/10/18 08:33 04/09/18 06:00 PT 14.5 Seconds (9.8-13.1) H 02/11/19 13:22 INR 1.3 04/08/18 13:22 APTT 29.9 Seconds (25.6-37.1) 04/08/18 13:22 - Constitutional Appears: Non-toxic, No Acute Distress - Head Exam Head Exam: ATRAUMATIC, NORMAL INSPECTION - Respiratory Exam Respiratory Exam: NORMAL BREATHING PATTERN - GI/Abdominal Exam GI & Abdominal Exam: Soft. absent: Tenderness - Extremities Exam Additional comments: s/p ID of left forearm abscess, improving erythema, no purulent drainage. Assessment and Plan - Assessment and Plan (Free Text) Assessment: s/p I&D of left forearm abscess -cont local wound care -f/u cultures -abx as per ID
[2018-04-10] MEDS: Oxycodone/Acetaminophen 5/325 mg Tab PO PRN ×2 (10:20→21:46)
--- NOTE | 2018-04-10 10:40 | CP.PCM.PN ---
<Karen Myrick - Last Filed: 04/10/18 10:44> Subjective - Date & Time of Evaluation Date of Evaluation: 04/10/18 Time of Evaluation: 09:00 - Subjective Subjective: Charts, labs, nurse notes reviewed. Afebrile over night. Sitting up comfortably in bed. Endorses improvement in symptoms of arm pain. C/o left hand swelling, no erythema/tenderness/numbness/tingling. Objective - Vital Signs/Intake and Output Vital Signs (last 24 hours): Temp Pulse Resp BP Pulse Ox 98.2 F 91 H 20 107/63 100 04/10/18 08:34 04/10/18 08:34 04/10/18 08:34 04/10/18 08:34 04/10/18 08:34 - Medications Medications: Current Medications Acetaminophen (Tylenol 325mg Tab) 650 mg PO Q6H PRN PRN Reason: Pain, Mild (1-3) Enoxaparin Sodium (Lovenox) 40 mg SC DAILY [facility]; Protocol Last Admin: 04/10/18 08:52 Dose: 40 mg Vancomycin HCl 1 gm/ Sodium (Chloride) 250 mls @ 166.667 mls/hr IVPB Q8 [facility]; Protocol Ketorolac Tromethamine (Toradol) 15 mg IVP Q6H PRN PRN Reason: Pain, moderate (4-7) [place] Carbonate ([place] Carbonate 300mg) 300 mg PO BID [facility] Last Admin: 04/10/18 08:51 Dose: 300 mg Nicotine (Nicoderm Cq) 1 patch TD DAILY [facility] Last Admin: 04/10/18 08:52 Dose: 1 patch Oxycodone/Acetaminophen (Percocet 5/325 Mg Tab) 1 tab PO Q6 PRN PRN Reason: Pain, severe (8-10) Stop: 04/13/18 10:01 Last Admin: 04/10/18 10:20 Dose: 1 tab Quetiapine Fumarate (Seroquel) 100 mg PO DAILY [facility] Last Admin: 04/10/18 08:53 Dose: 100 mg Quetiapine Fumarate (Seroquel) 200 mg PO DAILY@1300 [facility] Last Admin: 04/09/18 14:08 Dose: 200 mg Quetiapine Fumarate (Seroquel) 300 mg PO HS [facility] Last Admin: 04/09/18 22:58 Dose: 300 mg - Labs Labs: 04/10/18 08:33 04/09/18 06:00 PT 14.5 Seconds (9.8-13.1) H 04/08/18 13:22 INR 1.3 04/08/18 13:22 APTT 29.9 Seconds (25.6-37.1) 04/08/18 13:22 - Constitutional Appears: No Acute Distress - ENT Exam ENT Exam: Mucous Membranes Moist - Respiratory Exam Respiratory Exam: Clear to Ausculation Bilateral, NORMAL BREATHING PATTERN - Cardiovascular Exam Cardiovascular Exam: RRR, +S1, +S2 - GI/Abdominal Exam GI & Abdominal Exam: Soft, Normal Bowel Sounds - Extremities Exam Extremities Exam: Normal Inspection. absent: Pedal Edema, Tenderness Additional comments: Left arm covered, clean, dry. - Neurological Exam Neurological Exam: Alert, Awake - Psychiatric Exam Psychiatric exam: Normal Affect, Normal Mood - Skin Skin Exam: Dry, Warm Assessment and Plan - Assessment and Plan (Free Text) Assessment: Assessment: 23 y/o male w/ pmhx of depression, suicidal attempts, self-harm who is being ad mitted for management of a large left forearm abscess that resulted from self- inflicted trauma, now s/pod#2 of I&D, was started on Vanc 1gm IV Q12 and given Tetnus vaccine. Vanc trough 5.9 on 04/09/2018; Vanc increased to 1gm IV Q8. Abscess w/ cellulitis of left forearm S/POD#2 of I&D Leukocytosis resolved; WBC 20.0 --> 9.6 today ID consulted, Dr. Taveras following, appreciate recs; increase Vanc 1gm IV Q12 to Q8 as vanc trough today is 5.9 (goal of 10) Surgery, Dr. Michel, following, appreciate recs Blood cultures 04/06/2018 negative x2 for 72 hours 04/08/18Wound cultures: moderate gram+ cocci--> coagulase negative cocci Tetnus toxoid given Depression w/ hx of suicide attempt 1:1 maintained Psychiatry consulted on board; appreciate recommendations On Seroquel and [place] Hx of drug abuse Admits to meth and marijuana use Diet Regular DVT prophylaxis SCDs PRN Ambulates Code Status Full code <Ximena Johnston - Last Filed: 04/10/18 19:29> Objective - Vital Signs/Intake and Output Vital Signs (last 24 hours): Temp Pulse Resp BP Pulse Ox 97.9 F 88 18 99/56 L 99 04/10/18 16:48 04/10/18 16:48 04/10/18 16:48 04/10/18 16:48 04/10/18 16:48 - Medications Medications: Current Medications Acetaminophen (Tylenol 325mg Tab) 650 mg PO Q6H PRN PRN Reason: Pain, Mild (1-3) Enoxaparin Sodium (Lovenox) 40 mg SC DAILY [facility]; Protocol Last Admin: 04/10/18 08:52 Dose: 40 mg Vancomycin HCl 1 gm/ Sodium (Chloride) 250 mls @ 166.667 mls/hr IVPB Q8 [facility]; Protocol Last Admin: 04/10/18 17:06 Dose: 166.667 mls/hr Ketorolac Tromethamine (Toradol) 15 mg IVP Q6H PRN PRN Reason: Pain, moderate (4-7) [place] Carbonate ([place] Carbonate 300mg) 300 mg PO BID [facility] Last Admin: 04/10/18 17:03 Dose: 300 mg Nicotine (Nicoderm Cq) 1 patch TD DAILY [facility] Last Admin: 04/10/18 08:52 Dose: 1 patch Oxycodone/Acetaminophen (Percocet 5/325 Mg Tab) 1 tab PO Q6 PRN PRN Reason: Pain, severe (8-10) Stop: 04/13/18 10:01 Last Admin: 04/10/18 10:20 Dose: 1 tab Quetiapine Fumarate (Seroquel) 100 mg PO DAILY [facility] Last Admin: 04/10/18 08:53 Dose: 100 mg Quetiapine Fumarate (Seroquel) 200 mg PO DAILY@1300 [facility] Last Admin: 04/10/18 13:05 Dose: 200 mg Quetiapine Fumarate (Seroquel) 300 mg PO HS [facility] Last Admin: 04/09/18 22:58 Dose: 300 mg - Labs Labs: 04/10/18 08:33 04/09/18 06:00 PT 14.5 Seconds (9.8-13.1) H 04/08/18 13:22 INR 1.3 04/08/18 13:22 APTT 29.9 Seconds (25.6-37.1) 04/08/18 13:22 Attending/Attestation - Attestation I have personally seen and examined this patient.: Yes I have fully participated in the care of the patient.: Yes I have reviewed all pertinent clinical information, including history, physical exam and plan: Yes Notes (Text): Left Arm Cellulitis with abscess s/p Incision and Drainage IV Drug Abuser Polysubstance Abuse Bipolar Dis/Schizophrenia/Depression - Blood c/s : neg so far - Wound c/s: Gram + Cocci - cont IV Vanco - dose adjusted by Dr Taveras today - ID consulted- DR Taveras following -Psych consulted - cont Seroquel - 1:1 Obs for safety as pt is Suicidal
--- NOTE | 2018-04-10 13:05 | CP.PCM.PN ---
Subjective - Date & Time of Evaluation Date of Evaluation: 04/10/18 Time of Evaluation: 08:00 - Subjective Subjective: improving ' less swelling vanco adjusted Objective - Vital Signs/Intake and Output Vital Signs (last 24 hours): Temp Pulse Resp BP Pulse Ox 98.2 F 91 H 20 107/63 100 04/10/18 08:34 04/10/18 08:34 04/10/18 08:34 04/10/18 08:34 04/10/18 08:34 - Medications Medications: Current Medications Acetaminophen (Tylenol 325mg Tab) 650 mg PO Q6H PRN PRN Reason: Pain, Mild (1-3) Enoxaparin Sodium (Lovenox) 40 mg SC DAILY [facility]; Protocol Last Admin: 04/10/18 08:52 Dose: 40 mg Vancomycin HCl 1 gm/ Sodium (Chloride) 250 mls @ 166.667 mls/hr IVPB Q8 [facility]; Protocol Ketorolac Tromethamine (Toradol) 15 mg IVP Q6H PRN PRN Reason: Pain, moderate (4-7) [place] Carbonate ([place] Carbonate 300mg) 300 mg PO BID [facility] Last Admin: 04/10/18 08:51 Dose: 300 mg Nicotine (Nicoderm Cq) 1 patch TD DAILY [facility] Last Admin: 04/10/18 08:52 Dose: 1 patch Oxycodone/Acetaminophen (Percocet 5/325 Mg Tab) 1 tab PO Q6 PRN PRN Reason: Pain, severe (8-10) Stop: 04/13/18 10:01 Last Admin: 04/10/18 10:20 Dose: 1 tab Quetiapine Fumarate (Seroquel) 100 mg PO DAILY [facility] Last Admin: 04/10/18 08:53 Dose: 100 mg Quetiapine Fumarate (Seroquel) 200 mg PO DAILY@1300 [facility] Last Admin: 04/09/18 14:08 Dose: 200 mg Quetiapine Fumarate (Seroquel) 300 mg PO HS [facility] Last Admin: 04/09/18 22:58 Dose: 300 mg - Labs Labs: 04/10/18 08:33 04/09/18 06:00 PT 14.5 Seconds (9.8-13.1) H 04/08/18 13:22 INR 1.3 04/08/18 13:22 APTT 29.9 Seconds (25.6-37.1) 04/08/18 13:22 - Constitutional Appears: Well - Head Exam Head Exam: ATRAUMATIC, NORMAL INSPECTION, NORMOCEPHALIC - Eye Exam Eye Exam: EOMI, Normal appearance, PERRL Pupil Exam: NORMAL ACCOMODATION, PERRL - ENT Exam ENT Exam: Mucous Membranes Moist, Normal Exam - Neck Exam Neck Exam: Full ROM, Normal Inspection. absent: Lymphadenopathy - Respiratory Exam Respiratory Exam: Clear to Ausculation Bilateral, NORMAL BREATHING PATTERN - Cardiovascular Exam Cardiovascular Exam: REGULAR RHYTHM, +S1, +S2. absent: Murmur - GI/Abdominal Exam GI & Abdominal Exam: Soft, Normal Bowel Sounds. absent: Tenderness - Rectal Exam Rectal Exam: Deferred - Extremities Exam Extremities Exam: Full ROM, Normal Capillary Refill, Normal Inspection. absent: Joint Swelling, Pedal Edema - Back Exam Back Exam: NORMAL INSPECTION - Neurological Exam Neurological Exam: Alert, Awake, CN II-XII Intact, Normal Gait, Oriented x3 - Psychiatric Exam Psychiatric exam: Normal Affect, Normal Mood - Skin Skin Exam: Dry, Intact, Normal Color, Warm Assessment and Plan (1) Cellulitis of arm, left Status: Acute - Assessment and Plan (Free Text) Assessment: cont iv rx as ordered
[2018-04-11 06:30] LABS: BASO # 0.1 K/uL (0.0-0.2); BASO % 1.3 % (0.0-2.0); EOS # 0.3 K/uL (0.0-0.7); EOS % 3.1 % (0.0-4.0); HEMOGLOBIN 11.8 g/dL (12.0-18.0); LYMPH # 3.1 K/uL (1.0-4.3); LYMPH % 28.8 % (20.0-40.0); MEAN CELL VOLUME 87.1 fl (80.0-94.0); MEAN CORPUSCULAR HEMOGLOBIN 28.5 pg (27.0-31.0); MEAN CORPUSCULAR HGB CONC 32.8 g/dL (33.0-37.0); MEAN PLATELET VOLUME 7.2 fl (7.2-11.7); MONO % 9.3 % (0.0-10.0); NEUT # 6.1 K/uL (1.8-7.0); NEUT % 57.5 % (50.0-75.0); NRBC % 0.1 % (0.0-0.0); RBC 4.12 Mil/uL (4.40-5.90); RED CELL DISTRIBUTION WIDTH 13.9 % (11.5-14.5); WHITE BLOOD COUNT 10.7 K/uL (4.8-10.8)
[2018-04-11] MEDS: Enoxaparin 40 mg Syringe SC SCH (08:40)
--- NOTE | 2018-04-11 09:51 | CP.PCM.CON ---
History of Present Illness - History of Present Illness History of Present Illness: Psychiatry consult follow-up note CC: "I'm still hearing voices." HPI: 23 yo male w/ h/o Bipolar Disorder w/ Psychotic Features, admitted to medicine from psychiatry for worsening L arm cellulitis/abscess s/p cutting himself in his arm. Patient continues to report depression, anxiety, w/ continued AH and CAH telling him to kill himself. He states that he will not harm himself at this time, but is distressed by the CAH. PMHx: Acute left arm cellulitis/ abscess s/p I & D PPHx: H/o prior suicide attempts; h/o Bipolar Disorder SHx: Homeless, unemployed, h/o Meth, heroin and marijuana use/ MSE: A + O x 3, calm, cooperative, thought process-linear/coherent, thought content- no delusions, +CAH, denies acute SI, but reports feeling greatly disturbed by CAH, no HI; improving I/J Impression: 23 yo male w/ h/o Bipolar Disorder w/ Psychotic Features, continues to be acutely psychotic and an acute danger to self. -Increase Seroquel -Continue [place]; will check [place] level in 5 days -Continue 1:1 for safety -Patient would benefit from psychiatric admission when he is medically stable and no longer requires IV antibiotics Past Patient History - Tetanus Immunizations Tetanus Immunization: Unknown - Past Medical History & Family History Past Medical History?: No - Past Social History Alcohol: Occasional Drugs: Methamphetamine - CARDIAC Hx Cardiac Disorders: No - PULMONARY Hx Respiratory Disorders: No - NEUROLOGICAL Hx Neurological Disorder: No - HEENT Hx HEENT Problems: No - RENAL Hx Chronic Kidney Disease: No - HEMATOLOGICAL/ONCOLOGICAL Hx Blood Disorders: No - INTEGUMENTARY Hx Dermatological Problems: No - MUSCULOSKELETAL/RHEUMATOLOGICAL Hx Musculoskeletal Disorders: No - GASTROINTESTINAL Hx Gastritis: Yes - PSYCHIATRIC Hx Anxiety: Yes Hx Depression: Yes - SURGICAL HISTORY Hx Surgeries: No - ANESTHESIA Hx Anesthesia: Yes Hx Anesthesia Reactions: No Hx Malignant Hyperthermia: No Meds Allergies/Adverse Reactions: Allergies Allergy/AdvReac Type Severity Reaction Status Date / Time tramadol Allergy RASH Verified 04/04/18 03:32 - Medications Medications: Current Medications Acetaminophen (Tylenol 325mg Tab) 650 mg PO Q6H PRN PRN Reason: Pain, Mild (1-3) Enoxaparin Sodium (Lovenox) 40 mg SC DAILY [facility]; Protocol Last Admin: 04/11/18 08:40 Dose: 40 mg Vancomycin HCl 1 gm/ Sodium (Chloride) 250 mls @ 166.667 mls/hr IVPB Q8 [facility]; Protocol Last Admin: 04/11/18 08:42 Dose: 166.667 mls/hr Ketorolac Tromethamine (Toradol) 15 mg IVP Q6H PRN PRN Reason: Pain, moderate (4-7) [place] Carbonate ([place] Carbonate 300mg) 300 mg PO BID [facility] Last Admin: 04/11/18 08:41 Dose: 300 mg Nicotine (Nicoderm Cq) 1 patch TD DAILY [facility] Last Admin: 04/11/18 08:40 Dose: 1 patch Oxycodone/Acetaminophen (Percocet 5/325 Mg Tab) 1 tab PO Q6 PRN PRN Reason: Pain, severe (8-10) Stop: 04/13/18 10:01 Last Admin: 04/10/18 21:46 Dose: 1 tab Quetiapine Fumarate (Seroquel) 100 mg PO DAILY [facility] Last Admin: 04/11/18 08:41 Dose: 100 mg Quetiapine Fumarate (Seroquel) 300 mg PO HS [facility] Last Admin: 04/10/18 21:42 Dose: 300 mg Quetiapine Fumarate (Seroquel) 300 mg PO DAILY@1300 [facility] Results - Vital Signs Recent Vital Signs: Last Vital Signs Temp 97.8 F 04/11/18 08:12 Pulse 75 04/11/18 08:12 Resp 20 04/11/18 08:12 BP 100/60 04/11/18 08:12 Pulse Ox 97 04/11/18 08:12 - Labs Result Diagrams: 04/11/18 05:45 04/09/18 06:00 Labs: Laboratory Results - last 24 hr 04/11/18 05:45 WBC 10.7 RBC 4.12 L Hgb 11.8 L Hct 35.9 MCV 87.1 MCH 28.5 MCHC 32.8 L RDW 13.9 Plt Count 554 H MPV 7.2 Neut % (Auto) 57.5 Lymph % (Auto) 28.8 [place] % (Auto) 9.3 Eos % (Auto) 3.1 Baso % (Auto) 1.3 Neut # (Auto) 6.1 Lymph # (Auto) 3.1 [place] # (Auto) 1.0 H Eos # (Auto) 0.3 Baso # (Auto) 0.1
--- NOTE | 2018-04-11 10:33 | CP.PCM.PN ---
Subjective - Date & Time of Evaluation Date of Evaluation: 04/11/18 Time of Evaluation: 10:31 - Subjective Subjective: pt seen at bedside, no overnight events. Reports improved discomfort to Left upper extremity. Afebrile. Objective - Vital Signs/Intake and Output Vital Signs (last 24 hours): Temp Pulse Resp BP Pulse Ox 97.8 F 75 20 100/60 97 04/11/18 08:12 04/11/18 08:12 04/11/18 08:12 04/11/18 08:12 04/11/18 08:12 - Medications Medications: Current Medications Acetaminophen (Tylenol 325mg Tab) 650 mg PO Q6H PRN PRN Reason: Pain, Mild (1-3) Enoxaparin Sodium (Lovenox) 40 mg SC DAILY [facility]; Protocol Last Admin: 04/11/18 08:40 Dose: 40 mg Vancomycin HCl 1 gm/ Sodium (Chloride) 250 mls @ 166.667 mls/hr IVPB Q8 [facility]; Protocol Last Admin: 04/11/18 08:42 Dose: 166.667 mls/hr Ketorolac Tromethamine (Toradol) 15 mg IVP Q6H PRN PRN Reason: Pain, moderate (4-7) Linezolid (Zyvox) 600 mg PO Q12 [facility]; Protocol [place] Carbonate ([place] Carbonate 300mg) 300 mg PO BID [facility] Last Admin: 04/11/18 08:41 Dose: 300 mg Nicotine (Nicoderm Cq) 1 patch TD DAILY [facility] Last Admin: 04/11/18 08:40 Dose: 1 patch Oxycodone/Acetaminophen (Percocet 5/325 Mg Tab) 1 tab PO Q6 PRN PRN Reason: Pain, severe (8-10) Stop: 04/13/18 10:01 Last Admin: 04/10/18 21:46 Dose: 1 tab Quetiapine Fumarate (Seroquel) 100 mg PO DAILY [facility] Last Admin: 04/11/18 08:41 Dose: 100 mg Quetiapine Fumarate (Seroquel) 300 mg PO HS [facility] Last Admin: 04/10/18 21:42 Dose: 300 mg Quetiapine Fumarate (Seroquel) 300 mg PO DAILY@1300 [facility] - Labs Labs: 04/11/18 05:45 04/09/18 06:00 PT 14.5 Seconds (9.8-13.1) H 04/08/18 13:22 INR 1.3 04/08/18 13:22 APTT 29.9 Seconds (25.6-37.1) 04/08/18 13:22 - Constitutional Appears: Non-toxic, No Acute Distress - Head Exam Head Exam: ATRAUMATIC, NORMAL INSPECTION - Eye Exam Eye Exam: EOMI, PERRL - GI/Abdominal Exam GI & Abdominal Exam: Soft. absent: Distended, Firm - Skin Additional comments: s/p ID of left upper extremity abscess, +swelling, improved erythema Assessment and Plan - Assessment and Plan (Free Text) Assessment: 23yo M s/p ID of left upper extremity abscess -local wound care -abx as per ID -[place] [facility] [place]
[2018-04-11] MEDS: Oxycodone/Acetaminophen 5/325 mg Tab PO PRN (12:30)
--- NOTE | 2018-04-11 16:13 | CP.PCM.DIS ---
<ElenKaren - Last Filed: 04/11/18 16:24> Provider - Provider Date of Admission: 04/08/18 12:59 Attending physician: Ximena Johnston MD Consults: 04/08/18 13:03 Infectious Disease Consult Stat Comment: Consulting Provider: Luis Taveras Consulting Physician: Luis Taveras Reason for Consult: arm absces 04/08/18 13:04 Surgery [General Surgery Consult] Stat Comment: Consulting Provider: Santos Michel Consulting Physician: Santos Michel Reason for Consult: Arm Abscess 04/08/18 13:09 Psychiatry Consult Stat Comment: Consulting Provider: Jessica Waldron Consulting Physician: Jessica Waldron Reason for Consult: SI, depression Time Spent in preparation of Discharge (in minutes): 35 Diagnosis - Discharge Diagnosis (1) Status post incision and drainage Status: Resolved Priority: Low (2) Cellulitis of arm, left Status: Acute Priority: Low (3) Suicide attempt Status: Acute Priority: Medium (4) Abscess of forearm, left Status: Acute Priority: Low Hospital Course - Lab Results Lab Results: Micro Results 04/08/18 17:22 Arm - Left Gram Stain - Final 04/08/18 17:22 Arm - Left Wound Culture - Final Group F Streptococcus Corynebacterium Species Most Recent Lab Values WBC 10.7 K/uL (4.8-10.8) 04/11/18 05:45 RBC 4.12 Mil/uL (4.40-5.90) L 04/11/18 05:45 Hgb 11.8 g/dL (12.0-18.0) L 04/11/18 05:45 Hct 35.9 % (35.0-51.0) 04/11/18 05:45 MCV 87.1 fl (80.0-94.0) 04/11/18 05:45 MCH 28.5 pg (27.0-31.0) 04/11/18 05:45 MCHC 32.8 g/dL (33.0-37.0) L 04/11/18 05:45 RDW 13.9 % (11.5-14.5) 04/11/18 05:45 Plt Count 554 K/uL (130-400) H 04/11/18 05:45 MPV 7.2 fl (7.2-11.7) 04/11/18 05:45 Neut % (Auto) 57.5 % (50.0-75.0) 04/11/18 05:45 Lymph % (Auto) 28.8 % (20.0-40.0) 04/11/18 05:45 [place] % (Auto) 9.3 % (0.0-10.0) 04/11/18 05:45 Eos % (Auto) 3.1 % (0.0-4.0) 04/11/18 05:45 Baso % (Auto) 1.3 % (0.0-2.0) 04/11/18 05:45 Neut # (Auto) 6.1 K/uL (1.8-7.0) 04/11/18 05:45 Lymph # (Auto) 3.1 K/uL (1.0-4.3) 04/11/18 05:45 [place] # (Auto) 1.0 K/uL (0.0-0.8) H 04/11/18 05:45 Eos # (Auto) 0.3 K/uL (0.0-0.7) 04/11/18 05:45 Baso # (Auto) 0.1 K/uL (0.0-0.2) 04/11/18 05:45 PT 14.5 Seconds (9.8-13.1) H 04/08/18 13:22 INR 1.3 04/08/18 13:22 APTT 29.9 Seconds (25.6-37.1) 04/08/18 13:22 pO2 19 mm/Hg (30-55) L 04/08/18 13:28 VBG pH 7.37 (7.32-7.43) 04/08/18 13:28 VBG pCO2 50 mmHg (40-60) 04/08/18 13:28 VBG HCO3 25.1 mmol/L 04/08/18 13:28 VBG Total CO2 30.4 mmol/L (22-28) H 04/08/18 13:28 VBG O2 Sat (Calc) 28.4 % (40-65) L 04/08/18 13:28 VBG Base Excess 2.7 mmol/L (0.0-2.0) H 04/08/18 13:28 VBG Potassium 4.1 mmol/L (3.6-5.2) 04/08/18 13:28 Sodium 133.0 mmol/L (132-148) 04/08/18 13:28 Chloride 99.0 mmol/L (98-107) 04/08/18 13:28 Glucose 95 mg/dL (75-110) 04/08/18 13:28 Lactate 1.1 mmol/L (0.7-2.1) 04/08/18 13:28 FiO2 21.0 % 04/08/18 13:28 Sodium 140 mmol/l (132-148) 04/09/18 06:00 Potassium 4.3 MMOL/L (3.6-5.0) 04/09/18 06:00 Chloride 100 mmol/L (98-107) 04/09/18 06:00 Carbon Dioxide 26 mmol/L (22-30) 04/09/18 06:00 Anion Gap 18 (10-20) 04/09/18 06:00 BUN 13 mg/dl (9-20) 04/09/18 06:00 Creatinine 0.8 mg/dl (0.8-1.5) 04/09/18 06:00 Est GFR ( Amer) > 60 04/09/18 06:00 Est GFR (Non-Af Amer) > 60 04/09/18 06:00 Random Glucose 125 mg/dL (75-110) H 04/09/18 06:00 Calcium 9.4 mg/dL (8.4-10.2) 04/09/18 06:00 Total Bilirubin 0.3 mg/dl (0.2-1.3) 04/08/18 13:22 AST 30 U/L (17-59) 04/08/18 13:22 ALT 31 U/L (21-72) 04/08/18 13:22 Alkaline Phosphatase 73 U/L (38-126) 04/08/18 13:22 Total Protein 7.1 G/DL (6.3-8.2) 04/08/18 13:22 Albumin 3.8 g/dL (3.5-5.0) 04/08/18 13:22 Globulin 3.3 gm/dL (2.2-3.9) 04/08/18 13:22 Albumin/Globulin Ratio 1.1 (1.0-2.1) 04/08/18 13:22 Venous Blood Potassium 4.1 mmol/L (3.6-5.2) 04/08/18 13:28 Vancomycin Trough 5.9 ug/mL (5.0-10.0) 04/10/18 08:33 HIV-1 Ab Rapid Screen Non reactive (NON REAC) 04/09/18 06:00 Blood Type O POSITIVE 04/08/18 13:22 Blood Type Confirm O POSITIVE 04/08/18 14:29 Antibody Screen Negative 04/08/18 13:22 BBK History Checked No verified bt 04/08/18 13:22 - Hospital Course Hospital Course: 23 y/o male w/ pmhx of depression, suicidal attempts, and self-harm who was admitted for management of a large left forearm abscess that resulted from self- inflicted trauma, now s/p I&D, was started on Vanc 1gm IV Q12 and given Tetnus vaccine. Vanc trough 5.9 on 04/09/2018; Vanc increased to 1gm IV Q8. Patient bia mirela w/ Vanc IV x 3 days. Leukocytosis resolved, patient afebrile. Wound cultures positive for Cornybacterium and Streptococcus Group F. Patient started on PO abx, Clindamyacin 300mg Q6 for total of 7 days of treatment. Patient discharged to psych unit for follow up on depression and suicidal thoughts/attempt. Home meds: Clindamycin 300mg PO Q6 x 7 days Quetiapine 100mg PO BID Quetiapine 300mg PO HS Cylinder 300mg PO BID Discharge Exam - Head Exam Head Exam: ATRAUMATIC, NORMAL INSPECTION - ENT Exam ENT Exam: Mucous Membranes Moist - Respiratory Exam Respiratory Exam: Clear to PA & Lateral, NORMAL BREATHING PATTERN - Cardiovascular Exam Cardiovascular Exam: REGULAR RHYTHM, +S1, +S2 - GI/Abdominal Exam GI & Abdominal Exam: Normal Bowel Sounds. absent: Tenderness - Extremities Exam Additional comments: left arm swelling/erythema/tenderness improving. Old sutures from prior to admission removed. - Neurological Exam Neurological exam: Alert - Psychiatric Exam Psychiatric exam: Normal Affect - Skin Skin Exam: Dry, Intact, Warm Discharge Plan - Discharge Medications Prescriptions: Clindamycin [Cleocin] 300 mg PO Q6 7 Days cap - Follow Up Plan Condition: GOOD Disposition: DISCHARGE TO PSYCH HOSPITAL Instructions: Abscess Incision and Drainage (DC), Cellulitis (Skin Infection), Adult (DC) Additional Instructions: follow up with primary MD and Dr. Michel 1 week Medically cleared for d/c to Inpatient Psych ( 3NP) Pt would be on Po antibiotics to continue treatment Referrals: Santos Michel MD [Staff Provider] - Luis Taveras MD [Staff Provider] - Jessica Waldron MD [Medical Doctor] - <Ximena Johnston - Last Filed: 04/11/18 17:09> Provider - Provider Date of Admission: 04/08/18 12:59 Attending physician: Ximena Johnston MD Consults: 04/08/18 13:03 Infectious Disease Consult Stat Comment: Consulting Provider: Luis Taveras Consulting Physician: Luis Taveras Reason for Consult: arm absces 04/08/18 13:04 Surgery [General Surgery Consult] Stat Comment: Consulting Provider: Santos Michel Consulting Physician: Santos Michel Reason for Consult: Arm Abscess 04/08/18 13:09 Psychiatry Consult Stat Comment: Consulting Provider: Jessica Waldron Consulting Physician: Jessica Waldron Reason for Consult: SI, depression Hospital Course - Lab Results Lab Results: Micro Results 04/08/18 17:22 Arm - Left Gram Stain - Final 04/08/18 17:22 Arm - Left Wound Culture - Final Group F Streptococcus Corynebacterium Species Most Recent Lab Values WBC 10.7 K/uL (4.8-10.8) 04/11/18 05:45 RBC 4.12 Mil/uL (4.40-5.90) L 04/11/18 05:45 Hgb 11.8 g/dL (12.0-18.0) L 04/11/18 05:45 Hct 35.9 % (35.0-51.0) 04/11/18 05:45 MCV 87.1 fl (80.0-94.0) 04/11/18 05:45 MCH 28.5 pg (27.0-31.0) 04/11/18 05:45 MCHC 32.8 g/dL (33.0-37.0) L 04/11/18 05:45 RDW 13.9 % (11.5-14.5) 04/11/18 05:45 Plt Count 554 K/uL (130-400) H 04/11/18 05:45 MPV 7.2 fl (7.2-11.7) 04/11/18 05:45 Neut % (Auto) 57.5 % (50.0-75.0) 04/11/18 05:45 Lymph % (Auto) 28.8 % (20.0-40.0) 04/11/18 05:45 [place] % (Auto) 9.3 % (0.0-10.0) 04/11/18 05:45 Eos % (Auto) 3.1 % (0.0-4.0) 04/11/18 05:45 Baso % (Auto) 1.3 % (0.0-2.0) 04/11/18 05:45 Neut # (Auto) 6.1 K/uL (1.8-7.0) 04/11/18 05:45 Lymph # (Auto) 3.1 K/uL (1.0-4.3) 04/11/18 05:45 [place] # (Auto) 1.0 K/uL (0.0-0.8) H 04/11/18 05:45 Eos # (Auto) 0.3 K/uL (0.0-0.7) 04/11/18 05:45 Baso # (Auto) 0.1 K/uL (0.0-0.2) 04/11/18 05:45 PT 14.5 Seconds (9.8-13.1) H 04/08/18 13:22 INR 1.3 04/08/18 13:22 APTT 29.9 Seconds (25.6-37.1) 04/08/18 13:22 pO2 19 mm/Hg (30-55) L 04/08/18 13:28 VBG pH 7.37 (7.32-7.43) 04/08/18 13:28 VBG pCO2 50 mmHg (40-60) 04/08/18 13:28 VBG HCO3 25.1 mmol/L 04/08/18 13:28 VBG Total CO2 30.4 mmol/L (22-28) H 04/08/18 13:28 VBG O2 Sat (Calc) 28.4 % (40-65) L 04/08/18 13:28 VBG Base Excess 2.7 mmol/L (0.0-2.0) H 04/08/18 13:28 VBG Potassium 4.1 mmol/L (3.6-5.2) 04/08/18 13:28 Sodium 133.0 mmol/L (132-148) 04/08/18 13:28 Chloride 99.0 mmol/L (98-107) 04/08/18 13:28 Glucose 95 mg/dL (75-110) 04/08/18 13:28 Lactate 1.1 mmol/L (0.7-2.1) 04/08/18 13:28 FiO2 21.0 % 04/08/18 13:28 Sodium 140 mmol/l (132-148) 04/09/18 06:00 Potassium 4.3 MMOL/L (3.6-5.0) 04/09/18 06:00 Chloride 100 mmol/L (98-107) 04/09/18 06:00 Carbon Dioxide 26 mmol/L (22-30) 04/09/18 06:00 Anion Gap 18 (10-20) 04/09/18 06:00 BUN 13 mg/dl (9-20) 04/09/18 06:00 Creatinine 0.8 mg/dl (0.8-1.5) 04/09/18 06:00 Est GFR ( Amer) > 60 04/09/18 06:00 Est GFR (Non-Af Amer) > 60 04/09/18 06:00 Random Glucose 125 mg/dL (75-110) H 04/09/18 06:00 Calcium 9.4 mg/dL (8.4-10.2) 04/09/18 06:00 Total Bilirubin 0.3 mg/dl (0.2-1.3) 04/08/18 13:22 AST 30 U/L (17-59) 04/08/18 13:22 ALT 31 U/L (21-72) 04/08/18 13:22 Alkaline Phosphatase 73 U/L (38-126) 04/08/18 13:22 Total Protein 7.1 G/DL (6.3-8.2) 04/08/18 13:22 Albumin 3.8 g/dL (3.5-5.0) 04/08/18 13:22 Globulin 3.3 gm/dL (2.2-3.9) 04/08/18 13:22 Albumin/Globulin Ratio 1.1 (1.0-2.1) 04/08/18 13:22 Venous Blood Potassium 4.1 mmol/L (3.6-5.2) 04/08/18 13:28 Vancomycin Trough 5.9 ug/mL (5.0-10.0) 04/10/18 08:33 HIV-1 Ab Rapid Screen Non reactive (NON REAC) 04/09/18 06:00 Blood Type O POSITIVE 04/08/18 13:22 Blood Type Confirm O POSITIVE 04/08/18 14:29 Antibody Screen Negative 04/08/18 13:22 BBK History Checked No verified bt 04/08/18 13:22 Attending/Attestation - Attestation I have personally seen and examined this patient.: Yes I have fully participated in the care of the patient.: Yes I have reviewed all pertinent clinical information, including history, physical exam and plan: Yes Notes (Text): Left Arm Cellulitis with abscess s/p Incision and Drainage IV Drug Abuser Polysubstance Abuse Bipolar Dis/Schizophrenia/Depression - Incision and drainage done by Surgery in the OR - Blood c/s : neg - Wound c/s: Group F Strep and Corynecbacterium sp - Pt received IV Vanco - fever and leukocytosis resolved, Right arm swelling pain and erythema markedly improved - ID consulted- DR Taveras -Psych consulted - cont Seroquel and Cylinder - 1:1 Obs for safety as pt is Suicidal - cleared by Surgery - Dr Taveras rec changing IV Vanco to PO Clindamycin x 1 more wk - will d/c pt to Inpatient Psych for further mgt of his Pysch problems
[2018-04-11 17:13] VITALS: RESP 18
[2018-04-11 18:05] VITALS: BP 102/62; PULSE 78; TEMP 97.8
[2018-04-11 18:07] VITALS: O2SAT 99
== END 2018-04-11 21:05 | DRG 364 ==
LOC: H.ER 12:20 → H.ERHOLD 12:59 → H.MEDSURG1 17:43
PROVIDERS: ADMIT Internal Medicine; ATTEND Internal Medicine
PROC: 0J9F0ZZ Drainage of Left Upper Arm Subcutaneous Tissue and Fascia, Open Approach (ICD-10-PCS; principal; 2018-04-08 14:00)
PROC: 3E0234Z Introduction of Serum, Toxoid and Vaccine into Muscle, Percutaneous Approach (ICD-10-PCS; 2018-04-10)
DX: L03.114 Cellulitis of left upper limb (principal); B95.4 Other streptococcus as the cause of diseases classified elsewhere; F31.9 Bipolar disorder, unspecified; L02.414 Cutaneous abscess of left upper limb; F12.90 Cannabis use, unspecified, uncomplicated; F19.10 Other psychoactive substance abuse, uncomplicated; F41.9 Anxiety disorder, unspecified; K29.70 Gastritis, unspecified, without bleeding; F17.210 Nicotine dependence, cigarettes, uncomplicated; Z23 Encounter for immunization; Z91.5 Personal history of self-harm; Z59.0 Homelessness

== ENCOUNTER 2018-04-11 21:07 | Inpatient (IN) | payer OTHER, SELFPAY ==
[2018-04-11 21:37] VITALS: BMI 25.8
[2018-04-11] MEDS ORDERED: DiphenhydrAMINE 50 mg/ml Inj IM PRN (21:50)
[2018-04-11] MEDS ORDERED: Magnesium Hydroxide Susp 30 ml UD PO PRN (21:50)
[2018-04-11] MEDS ORDERED: Alum-Mag Hydrox-Simethicone Susp (30 mL) PO PRN (21:50)
--- NOTE | 2018-04-11 22:12 | PCM.BM ---
<RolyJoslyn Yaa - Last Filed: 04/11/18 22:10> Treatment Plan Problems - Problems identified on initial assessmt Auditory Hallucinations Date Initiated: 04/11/18 Time Initiated: 22:10 Assessment reference: NA Status: Active Altered Sleep Patterns Date Initiated: 04/11/18 Time Initiated: 22:11 Assessment reference: NA Status: Active Hopelessness/Helplessness Date Initiated: 04/11/18 Time Initiated: 22:11 Assessment reference: NA Status: Active Treatment assets and liabiliti Patient Assests: cooperative, self-reliant, ADL independent, negotiates basic needs, cognitively intact Patient Liabilities: financial problems, poor support system, relationship conflicts, substance abuse, medical problems, legal issue - Milieu Protocol Maintain good personal hygiene: daily Encourage regular showers, every shift Remind patient to perform daily oral care, every shift Assist patient to perform ADL's Maintain personal safety: every shift Educate patient to report safety concerns to staff, every shift Monitor environment for contraband/sharps Medication safety: Monitor for expected outcome, potential side effects: every shift, Assess barriers to learning: every shift, Assess readiness for medication education: every shift <Marcellus Solano - Last Filed: 04/14/18 20:40> Family Contact Family involvement: Famliy/SO not involved Family contact: Patient declines to allow family contact at present Family contact name: Pt refused. - Goals for Treatment Patient goals for treatment: Pt would like help with concrete services, help establish goals, and help pt become more future focused and less depressed. Discharge/Continuing Care - Education Needs Education Needs: Patient Medication, Patient Diagnosis/Disease Process, Patient Coping Skills, Patient Community resources, Patient Aftercare Safety Plan - Discharge Discharge Criteria: Tolerates medication w/o severe side effects, Free of Suicidal thoughts, Free of agitation, Normal sleep pattern, Ability to care for self, Reduction of target symptoms Discharge to:: Care Home - Treatment Team Participation Patient/Family/SO Statement: 04/14/18 20:39 Pt seen in treatment team on 04/12. Pt expressed frustration as the nurse would not allow him to dress his own wound. Pt discussed his children and wanting to be a good father for them. Medications of [place] and Seroquel discussed and [place] level to be drawn on 04/15/18. Discussed with Family/SO: No Was Patient/Family/SO present at Treatment Team Meeting: Yes
[2018-04-12] MEDS ORDERED: Lithium Carbonate 150 MG CAP PO STA (11:25)
--- NOTE | 2018-04-12 13:35 | CP.PCM.CON ---
<Karen Myrick - Last Filed: 04/12/18 13:33> History of Present Illness - History of Present Illness History of Present Illness: 23 y/o male w/ pmhx of depression, suicidal attempts, and self-harm who was admitted for management of a large left forearm abscess that resulted from self-inflicted trauma, now s/p I&D, was started on Vanc 1gm IV Q12 and given Tetnus vaccine. Vanc trough 5.9 on 04/09/2018; Vanc increased to 1gm IV Q8. Patient treated w/ Vanc IV x 3 days. Leukocytosis resolved, patient afebrile. Wound cultures positive for Cornybacterium and Streptococcus Group F. Patient started on PO abx, Clindamyacin 300mg Q6 for total of 7 days of treatment. Patient discharged to psych unit for follow up on depression and suicidal thoughts/attempt. PMD: none Pmhx: depression, suicidal attempts, self-mutilation, substance abuse HomeRx: denies SurgHx: denies SocialHx: Unemployed, homeless. Admits to meth, heroin, and marijuana use. Denies tobacco and etoh use. FamHx: non-contributory Allergies: Tramadol Next of Kin: none Code status: Full code Review of Systems - Review of Systems All systems: reviewed and no additional remarkable complaints except - Psychiatric Psychiatric: Auditory Hallucinations, Depression Past Patient History - Tetanus Immunizations Tetanus Immunization: Unknown - Past Medical History & Family History Past Medical History?: No - Past Social History Smoking Status: Heavy Smoker > 10 Cigarettes Daily - CARDIAC Hx Cardiac Disorders: No - PULMONARY Hx Respiratory Disorders: No - NEUROLOGICAL Hx Neurological Disorder: No - HEENT Hx HEENT Problems: No - RENAL Hx Chronic Kidney Disease: No - ENDOCRINE/METABOLIC Hx Endocrine Disorders: No - HEMATOLOGICAL/ONCOLOGICAL Hx Blood Disorders: No - INTEGUMENTARY Hx Dermatological Problems: No - MUSCULOSKELETAL/RHEUMATOLOGICAL Hx Musculoskeletal Disorders: No - GASTROINTESTINAL Hx Gastritis: Yes - GENITOURINARY/GYNECOLOGICAL Hx Genitourinary Disorders: No - PSYCHIATRIC Hx Anxiety: Yes Hx Depression: Yes - SURGICAL HISTORY Hx Surgeries: Yes Other/Comment: Left arm I&D 04/08/2018 - ANESTHESIA Hx Anesthesia: Yes Hx Anesthesia Reactions: No Hx Malignant Hyperthermia: No Meds Allergies/Adverse Reactions: Allergies Allergy/AdvReac Type Severity Reaction Status Date / Time tramadol Allergy RASH Verified 04/04/18 03:32 - Medications Medications: Current Medications Acetaminophen (Tylenol 325mg Tab) 650 mg PO Q4 PRN PRN Reason: pain 4-7 Last Admin: 04/12/18 08:51 Dose: 650 mg Al Hydrox/Mg Hydrox/Simethicone (Maalox Plus 30 Ml) 30 ml PO Q4 PRN PRN Reason: Dyspepsia Bacitracin (Bacitracin) 1 ea TOP BID [facility] Clindamycin HCl (Cleocin) 300 mg PO Q6 AGUSTIN; Protocol Last Admin: 04/12/18 09:00 Dose: 300 mg Diphenhydramine HCl (Benadryl) 50 mg IM Q6 PRN PRN Reason: Extrapyramidal S/S Unable PO Diphenhydramine HCl (Benadryl) 50 mg PO Q6 PRN PRN Reason: Extrapyramidal Symptoms Diphenhydramine HCl (Benadryl) 50 mg PO HS PRN PRN Reason: Sleep Haloperidol (Haldol) 5 mg PO Q4 PRN PRN Reason: Agitation Haloperidol Lactate (Haldol) 5 mg IM Q4 PRN PRN Reason: Agitation, Unable to Take PO Turin Carbonate (Turin Carbonate 150mg) 450 mg PO BID [facility] Lorazepam (Ativan) 2 mg IM Q6 PRN PRN Reason: Anxiety/Agitation,Unable PO Lorazepam (Ativan) 1 mg PO Q8 PRN PRN Reason: anxiety/agitation Magnesium Hydroxide (Milk Of Magnesia) 30 ml PO HS PRN PRN Reason: Constipation Nicotine (Nicoderm Cq) 1 patch TD DAILY [facility] Quetiapine Fumarate (Seroquel) 100 mg PO BID [facility] Quetiapine Fumarate (Seroquel) 400 mg PO HS [facility] Physical Exam - Constitutional Appears: In Acute Distress - Eye Exam Eye Exam: EOMI Pupil Exam: PERRL - ENT Exam ENT Exam: Mucous Membranes Moist - Respiratory Exam Respiratory Exam: Clear to Auscultation Bilateral, NORMAL BREATHING PATTERN - Cardiovascular Exam Cardiovascular Exam: REGULAR RHYTHM, +S1, +S2 - GI/Abdominal Exam GI & Abdominal Exam: Distended, Normal Bowel Sounds. absent: Tenderness - Back Exam Back exam: NORMAL INSPECTION - Neurological Exam Neurological exam: Alert - Psychiatric Exam Psychiatric exam: Depressed - Skin Skin Exam: Dry, Warm Results - Vital Signs Recent Vital Signs: Last Vital Signs Temp 97.2 F L 04/12/18 09:00 Pulse 91 H 04/12/18 09:00 Resp 18 04/12/18 09:00 BP 106/69 04/12/18 09:00 Pulse Ox Assessment & Plan - Assessment and Plan (Free Text) Assessment: 23 y/o male w/ pmhx of depression, suicidal attempts, and self-harm which resulted in infected large left forearm abscess, now s/p I&D and receiving abx. Transfered to psych unit for management of mental health issues. We are consulted for medical management. Abscess w/ cellulitis of left forearm S/P of I&D ID consulted, Dr. Taveras following, appreciate recs; cont Clindamycin 300mg PO Q6H Surgery, Dr. Michel, following, appreciate recs; plans for possible I&D Blood cultures 04/06/2018 negative x2 for 48 hours Wound cultures pending Tetnus toxoid Depression w/ hx of suicide attempt managed by psych Hx of drug abuse Admits to meth and marijuana use Diet Regular DVT prophylaxis SCDs PRN Ambulates Code Status Full code <Traci Benton - Last Filed: 04/13/18 16:37> Meds - Medications Medications: Current Medications Acetaminophen (Tylenol 325mg Tab) 650 mg PO Q4 PRN PRN Reason: pain 4-7 Last Admin: 04/12/18 08:51 Dose: 650 mg Al Hydrox/Mg Hydrox/Simethicone (Maalox Plus 30 Ml) 30 ml PO Q4 PRN PRN Reason: Dyspepsia Bacitracin (Bacitracin) 1 ea TOP BID [facility] Last Admin: 04/13/18 09:27 Dose: 1 ea Clindamycin HCl (Cleocin) 300 mg PO Q6 AGUSTIN; Protocol Last Admin: 04/13/18 09:25 Dose: 300 mg Diphenhydramine HCl (Benadryl) 50 mg IM Q6 PRN PRN Reason: Extrapyramidal S/S Unable PO Diphenhydramine HCl (Benadryl) 50 mg PO Q6 PRN PRN Reason: Extrapyramidal Symptoms Diphenhydramine HCl (Benadryl) 50 mg PO HS PRN PRN Reason: Sleep Last Admin: 04/12/18 22:44 Dose: 50 mg Haloperidol (Haldol) 5 mg PO Q4 PRN PRN Reason: Agitation Haloperidol Lactate (Haldol) 5 mg IM Q4 PRN PRN Reason: Agitation, Unable to Take PO [place] Carbonate (Turin Carbonate 150mg) 450 mg PO BID [facility] Last Admin: 04/13/18 09:24 Dose: 450 mg Lorazepam (Ativan) 2 mg IM Q6 PRN PRN Reason: Anxiety/Agitation,Unable PO Lorazepam (Ativan) 1 mg PO Q8 PRN PRN Reason: anxiety/agitation Magnesium Hydroxide (Milk Of Magnesia) 30 ml PO HS PRN PRN Reason: Constipation Nicotine (Nicoderm Cq) 1 patch TD DAILY [facility] Last Admin: 04/13/18 09:23 Dose: 1 patch Quetiapine Fumarate (Seroquel) 100 mg PO BID [facility] Last Admin: 04/13/18 09:25 Dose: 100 mg Quetiapine Fumarate (Seroquel) 400 mg PO HS [facility] Last Admin: 04/12/18 21:05 Dose: 400 mg Results - Vital Signs Recent Vital Signs: Last Vital Signs Temp 96.8 F L 04/12/18 17:00 Pulse 100 H 04/12/18 17:00 Resp 18 04/12/18 17:00 BP 129/67 04/12/18 17:00 Pulse Ox Attending/Attestation - Attestation I have personally seen and examined this patient.: Yes I have fully participated in the care of the patient.: Yes I have reviewed all pertinent clinical information: Yes Notes (Text): 04/13/18 16:37 agree with findings and plan as above.
[2018-04-12] MEDS: Lithium Carbonate 150 MG CAP PO SCH (16:22)
[2018-04-12] MEDS: Bacitracin 500 Units/gm Oint Foilpak UD TOP SCH (16:23)
[2018-04-13] MEDS: Lithium Carbonate 150 MG CAP PO SCH ×2 (09:24→18:18)
[2018-04-13] MEDS: Bacitracin 500 Units/gm Oint Foilpak UD TOP SCH ×2 (09:27→18:19)
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
[2018-04-14 07:03] LABS: HEMOGLOBIN 12.4 g/dL (12.0-18.0); MEAN CELL VOLUME 85.9 fl (80.0-94.0); MEAN CORPUSCULAR HEMOGLOBIN 28.3 pg (27.0-31.0); MEAN CORPUSCULAR HGB CONC 32.9 g/dL (33.0-37.0); RBC 4.37 Mil/uL (4.40-5.90); WHITE BLOOD COUNT 10.4 K/uL (4.8-10.8)
[2018-04-14] MEDS: Lithium Carbonate 150 MG CAP PO SCH ×2 (09:04→17:00)
[2018-04-14] MEDS: Bacitracin 500 Units/gm Oint Foilpak UD TOP SCH ×2 (09:05→17:01)
--- NOTE | 2018-04-14 20:11 | PCM.PYCHPN ---
Psychiatric Progress Note - Psychiatric Progress Note Patient seen today, length of contact: chart reviewed case discussed with team pt seen Patient Chief Complaint: pt transferred from [facility] 2nd to bed allocation, reports feels calmer in this unit, some anxiety prn lorazepam review anxiety scale relaxation, mindfulness, staff report pt rx adherent, denies complaints pain related hx infection arm s/p cutting, denies current desire to harmself, Problems Identified/Issues Discussed: alteration in mood alteration in coping alteration in skin integrity Medical Problems: wound arm, s/p infection, s/p self cutting per chart Diagnostic Results: per psychiatry per medicine per nursing per social work per recreational therapy DSM 5 Symptoms Update: somewhat improving mood anxiety episodic denies desire to harm self Medication Change: No Medical Record Reviewed: Yes Consults ordered or reviewed: pt seen by medical provider Mental Status Examination - Cognitive Function Orientation: Person, Place, Situation Attention: WNL Concentration: WNL Association: WN Fund of Knowledge: [facility] Decription of patient's judgement and insights: impaired - Mood Mood: Depressed - Affect Affect: Broad - Formal Thought Process Formal Thought Process: Circumstantial - Homicidal Ideation Homicidal Ideation: No Goal/Treatment Plan - Goal/Treatment Plan Need for Continued Stay: Discharge may exacerbated symptoms Progress Toward Problem(s) and Goals/Treatment Plan: inpt milieu adjust medication per cliinical status pt being followed by medicine related to hx of infection arms/p self inflicted injury improving vital signs clinical obervation per protocol and per clinical status review prn use of lorazepam discharge per clinical status on going in process Estimated Date of D/C: 04/17/18 - Smoking Cessation Smoking Cessation Initiated: No Reason for not providing: pt defers
[2018-04-15] MEDS: Lithium Carbonate 150 MG CAP PO SCH ×2 (08:11→16:36)
[2018-04-15] MEDS: Bacitracin 500 Units/gm Oint Foilpak UD TOP SCH ×2 (09:03→16:34)
--- NOTE | 2018-04-15 20:34 | PCM.PYCHPN ---
Psychiatric Progress Note - Psychiatric Progress Note Patient seen today, length of contact: chart reviewed case discussed with team pt seen Patient Chief Complaint: pt transferred from [facility] 2nd to bed allocation, reports feels calmer in this unit, some anxiety prn lorazepam review anxiety scale relaxation, mindfulness, staff report pt rx adherent, denies complaints pain related hx infection arm s/p cutting, denies current desire to harmself, Problems Identified/Issues Discussed: alteration in mood alteration in coping alteration in skin integrity Medical Problems: wound arm, s/p infection, s/p self cutting per chart Diagnostic Results: per psychiatry per medicine per nursing per social work per recreational therapy DSM 5 Symptoms Update: somewhat less labile Medication Change: No Medical Record Reviewed: Yes Mental Status Examination - Cognitive Function Orientation: Person, Place, Situation Attention: WNL Concentration: WNL Association: WNL Fund of Knowledge: WNL Decription of patient's judgement and insights: impaired - Mood Mood: Depressed - Affect Affect: Broad - Formal Thought Process Formal Thought Process: Circumstantial - Homicidal Ideation Homicidal Ideation: No Goal/Treatment Plan - Goal/Treatment Plan Need for Continued Stay: Discharge may exacerbated symptoms Progress Toward Problem(s) and Goals/Treatment Plan: inpt milieu adjust medication per cliinical status pt being followed by medicine related to hx of infection arms/p self inflicted injury improving lithium level 0.8 today vital signs clinical obervation per protocol and per clinical status review prn use of lorazepam discharge per clinical status on going in process Estimated Date of D/C: 04/17/18 - Smoking Cessation Smoking Cessation Initiated: No Reason for not providing: pt defers
[2018-04-16] MEDS: Lithium Carbonate 150 MG CAP PO SCH ×2 (09:02→16:28)
[2018-04-16] MEDS: Bacitracin 500 Units/gm Oint Foilpak UD TOP SCH ×2 (09:03→16:29)
--- NOTE | 2018-04-16 18:03 | PCM.PYCHPN ---
Psychiatric Progress Note - Psychiatric Progress Note Patient seen today, length of contact: chart reviewed case discussed with team pt seen Patient Chief Complaint: reports pt transferred from [address] [place] [address] to bed allocation, reports feels calmer in this unit, some anxiety prn lorazepam review anxiety scale relaxation, mindfulness, staff report pt rx adherent, denies complaints pain related hx infection arm s/p cutting, denies current desire to harmself, Problems Identified/Issues Discussed: alteration in mood alteration in coping alteration in skin integrity Medical Problems: wound arm, s/p infection, s/p self cutting per chart Diagnostic Results: per psychiatry per medicine per nursing per social work per recreational therapy Medication Change: No Medical Record Reviewed: Yes Mental Status Examination - Cognitive Function Orientation: Person, Place, Situation Attention: WNL Concentration: WNL Association: WNL Fund of Knowledge: WN Decription of patient's judgement and insights: impaired - Mood Mood: Depressed - Affect Affect: Broad - Formal Thought Process Formal Thought Process: Circumstantial - Homicidal Ideation Homicidal Ideation: No Goal/Treatment Plan - Goal/Treatment Plan Need for Continued Stay: Discharge may exacerbated symptoms Progress Toward Problem(s) and Goals/Treatment Plan: inpt milieu adjust medication per cliinical status pt being followed by medicine related to hx of infection arms/p self inflicted injury improving lithium level 0.8 today vital signs clinical obervation per protocol and per clinical status review prn use of lorazepam discharge per clinical status on going in process Estimated Date of D/C: 04/17/18
[2018-04-17] MEDS: Bacitracin 500 Units/gm Oint Foilpak UD TOP SCH ×2 (08:28→16:26)
[2018-04-17] MEDS: Lithium Carbonate 150 MG CAP PO SCH ×2 (08:29→16:27)
--- NOTE | 2018-04-17 15:44 | PCM.BM ---
Treatment Plan Problems - Problems identified on initial assessmt Auditory Hallucinations Date Initiated: 04/11/18 Time Initiated: 22:10 Assessment reference: NA Status: Active Altered Sleep Patterns Date Initiated: 04/11/18 Time Initiated: 22:11 Assessment reference: NA Status: Active Hopelessness/Helplessness Date Initiated: 04/11/18 Time Initiated: 22:11 Assessment reference: NA Status: Active Treatment assets and liabiliti Patient Assests: cooperative, self-reliant, ADL independent, negotiates basic needs, cognitively intact Patient Liabilities: financial problems, poor support system, relationship conflicts, substance abuse, medical problems, legal issue - Milieu Protocol Maintain good personal hygiene: daily Encourage regular showers, every shift Remind patient to perform daily oral care, every shift Assist patient to perform ADL's Maintain personal safety: every shift Educate patient to report safety concerns to staff, every shift Monitor environment for contraband/sharps Medication safety: Monitor for expected outcome, potential side effects: every shift, Assess barriers to learning: every shift, Assess readiness for medication education: every shift Milieu Narrative: inpt milieu adjust medication per cliinical status pt being followed by medicine related to hx of infection arms/p self inflicted injury improving lithium level 0.8 today vital signs clinical obervation per protocol and per clinical status review prn use of lorazepam discharge per clinical status on going in process Family Contact Family involvement: Famjeniffer/SO not involved Family contact: Patient declines to allow family contact at present Family contact name: Pt refused. - Goals for Treatment Patient goals for treatment: Pt would like help with concrete services, help establish goals, and help pt become more future focused and less depressed. Discharge/Continuing Care - Education Needs Education Needs: Patient Medication, Patient Diagnosis/Disease Process, Patient Coping Skills, Patient Community resources, Patient Aftercare Safety Plan - Discharge Discharge Criteria: Tolerates medication w/o severe side effects, Free of Suicidal thoughts, Free of agitation, Normal sleep pattern, Ability to care for self, Reduction of target symptoms [facility]charge to:: [facility] - Treatment Team Participation Patient/Family/SO Statement: inpt milieu adjust medication per cliinical status pt being followed by medicine related to hx of infection arms/p self inflicted injury improving lithium level 0.8 today vital signs clinical obervation per protocol and per clinical status review prn use of lorazepam discharge per clinical status on going in process Discussed with Family/SO: No Was Patient/Family/SO present at Treatment Team Meeting: Yes Treatment Plan Review - Problem Auditory Hallucinations Time Initiated: 22:10 Altered Sleep Patterns Time Initiated: 22:11 Hopelessness/Helplessness Time Initiated: 22:11 - Discharge / Continuing Care [facility]charge to:: [facility] Services: Outpatient therapy Health Needs: Doctor appointments (Pt seen in treatment team on 04/17/18 for review. Pt reported he was "upset" because another pt that he bonded with was discharged today. Pt reported he has been exploring his spirituality in an effort to better himself. Pt reported that his depression is increased today because he did not sleep and had nightmares of others chasing him. It was discussed that Minipress would not work for pt as he has low BP and is also on Seroquel. Pt denied current SI/HI and AVT hallucinations. ), Medications/Rx
--- NOTE | 2018-04-17 19:05 | PCM.PYCHPN ---
Psychiatric Progress Note - Psychiatric Progress Note Patient seen today, length of contact: chart reviewed case discussed with team pt seen Patient Chief Complaint: reports pt transferred from [address] [place] [id number] to bed allocation, reports feels calmer in this unit, some anxiety prn lorazepam review anxiety scale relaxation, mindfulness, staff report pt rx adherent, denies complaints pain related hx infection arm s/p cutting, denies current desire to harmself, Problems Identified/Issues Discussed: alteration in mood alteration in coping alteration in skin integrity Medical Problems: wound arm, s/p infection, s/p self cutting per chart Diagnostic Results: per psychiatry per medicine per nursing per social work per recreational therapy Medication Change: No Medical Record Reviewed: Yes Mental Status Examination - Cognitive Function Orientation: Person, Place, Situation Attention: WNL Concentration: WNL Association: WNL Fund of Knowledge: WN Decription of patient's judgement and insights: impaired - Mood Mood: Depressed - Affect Affect: Broad - Formal Thought Process Formal Thought Process: Circumstantial - Homicidal Ideation Homicidal Ideation: No Goal/Treatment Plan - Goal/Treatment Plan Need for Continued Stay: Discharge may exacerbated symptoms Progress Toward Problem(s) and Goals/Treatment Plan: inpt milieu adjust medication per cliinical status pt being followed by medicine related to hx of infection arms/p self inflicted injury improving lithium level 0.8 today vital signs clinical obervation per protocol and per clinical status review prn use of lorazepam discharge per clinical status on going in process Estimated Date of D/C: 04/17/18
[2018-04-18] MEDS: Bacitracin 500 Units/gm Oint Foilpak UD TOP SCH ×2 (08:53→17:36)
[2018-04-18] MEDS: Lithium Carbonate 150 MG CAP PO SCH ×2 (08:53→17:35)
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
[2018-04-19 05:38] VITALS: BP 104/68; PULSE 71; RESP 18; TEMP 97.1
[2018-04-19] MEDS: Bacitracin 500 Units/gm Oint Foilpak UD TOP SCH (08:15)
[2018-04-19] MEDS: Lithium Carbonate 150 MG CAP PO SCH (08:15)
--- NOTE | 2018-04-24 16:39 | PCM.PYCHDC ---
Mental Status Examination - Mental Status Examination Orientation: Person, Place, Situation, Time Memory: Intact Mood: Neutral Affect: Broad Speech: Appropriate Attention: WNL Concentration: WNL Association: WNL Fund of Knowledge: WNL Formal Thought Process: No Impairment Description of patient's judgement and insight: improved Discharge Summary - Discharge Note Reason for Hospitalization: pt presented to [facility] 2nd self inflicted laceration arm (were several has hx. of self injurous behavior), one wound became infected and pt was treated for cellulitis on regular general medicine floor and followed by psych as consult. once medically stable pt was transferred to [facility] on a voluntary basis, bipolor, jayson, methodist preoccupation, insomnia, ?psychosis Laboratory Data: pt chart pt was followed by medicine for cellulitis of wound self inflicted arm received antibiotics Consultations:: List each consultation separately and include: 1. Reason for request. 2. Findings. 3. Follow-up Consultations: pt seen by medical provider Summary of Hospital Course include:: 1. Description of specific treatment plan utilized for patients during their course of treatmen. 2. Summarize the time- course for resolution of acute symptoms and/or regressed behaviors. 3. Describe issues identified and worked on during hospitalization. 4. Describe medication utilized. 5. Describe medical problems identified and treated. 6. Reassessment of suicide risk Summary of Hospital Course: pt is 23 ys old male with previous psychiatric diagnosis of depression, bipolar, and polysubstance use. pt was initially brought to [facility] er after a suicidal attempt by cutting his forearm with a knife (pt has hx of self cutting/multiple superficial scratches/scars). pt developed cellutis was transferred general medical floor followed by psych as consult. while general medicine floor received iv antibotics. once medically stable pt was transferred to [facility] on a voluntary basis. pt received on psychiatric evalaution, adjustments of medications according to clinical status. pt was later transferred to 3 with pt's permission secondary to bed allocation. while on 3ns was followed by medicine and psychiatry. continued to receive psychiatric evaluation and adjustment of medications according to status. pt was stablized. pt to followed in community pt received discharge teaching by primary rx. pt was given number to [facility] er/if any change s/s infection return to [facility] [phone] 911. pt discharged per attending md. pt escorted off of unit by nursing staff without incident. - Diagnosis (1) Suicide attempt Assessment and Plan: denies suicidal ideations upon discharge contracts for safety Status: Acute Priority: Medium (2) Bipolar disorder Status: Chronic (3) Cellulitis of arm, left Status: Chronic Priority: Low (4) Status post incision and drainage Status: Resolved Priority: Low (5) Abscess of left arm Status: Acute Comment: improved no s/s infection upon discharge - Final Diagnosis (DSM 5) Condition upon Discharge: GOOD Disposition: HOME/ ROUTINE Follow-up Treatment Plan: pt to be discharged per attending md pt to follow upon discharge in community-team has made appt. review if s/s suicidal ideation: [phone] pt contracts for safety upon discharge pt being followed by medicine related to hx of infection arms/p self inflicted injury improving -if changes in lof, s/s infection er review with lithium-avoid dehydration-possible increased risk for lithium toxicity shakes tremors decreased urine output, review that pt should follow up medical care possible effects on thyroid function likely decreased -dry skin cold intolerence dry skin dry hair change in eye brow encourage na-attempt on going sobriety-review likely effects non prescribed drug on brain function per verbally agreeable to plan defers further questions pt received discharge instruction per primary rn-pt escorted without incident Prescriptions/Medication Reconciliation: [place] Carbonate [[place] Carbonate 300MG] 300 mg PO BID 30 Days #60 cap QUEtiapine [Seroquel] 100 mg PO BID 30 Days #60 tab QUEtiapine [SEROquel] 300 mg PO HS 30 Days #30 tab - Smoking Cessation Smoking Cessation Medication prescribed: No Reason for not providing: pt defers - Antipsychotic Medications Pt discharged on 2 or more routine antipsychotic medications: No
== END 2018-04-19 12:15 | disposition home or self-care (01) | DRG 753 ==
LOC: H.PSYCH 21:38 → H.STEP 04-14 11:26
PROVIDERS: ADMIT Psychiatry & Neurology Psychiatry; ATTEND Psychiatry & Neurology Psychiatry
PROC: GZHZZZZ Group Psychotherapy (ICD-10-PCS; principal; 2018-04-11)
DX: F31.9 Bipolar disorder, unspecified (principal); R45.851 Suicidal ideations; L02.414 Cutaneous abscess of left upper limb; F17.210 Nicotine dependence, cigarettes, uncomplicated; Z59.0 Homelessness; Z88.6 Allergy status to analgesic agent; K29.70 Gastritis, unspecified, without bleeding; B95.4 Other streptococcus as the cause of diseases classified elsewhere; L03.114 Cellulitis of left upper limb; F12.90 Cannabis use, unspecified, uncomplicated; Z91.5 Personal history of self-harm

== ENCOUNTER 2018-06-03 09:34 | Emergency (ER) | payer OTHER ==
[2018-06-03 09:37] VITALS: RESP 18; BMI 27.4
--- NOTE | 2018-06-03 11:11 | ED PDOC ---
History of Present Illness History of Present Illness: 23 Y/O MALE WITH NO MEDICAL HX PRESENTS TO THE ED C/O COUGH FOR ONE WEEK, SUBJECTIVE FEVER SINCE SUNDAY AND SOB THIS AM WITH ASSOCIATED BODYACHES, THROAT PAIN AND NASAL CONGESTION. PATIENT STATES HE HAS NOT TAKEN MEDS OR SYMPTOMS TODAY. PATIENT DENIES SICK CONTACTS BUT STATES HE LIVES IN THE [facility]. PATIENT IS A SMOKER. DENIES CHEST PAIN, NAUSEA, VOMITING. HPI: Influenza Time Seen by Provider: 06/03/18 10:30 Chief Complaint: Cough, Cold, Congestion Chief Complaint (Provider): BODYACHES, COUGH, FEVER History Per: Patient Exam Limitations: no limitations Have you had recent travel within the past 21 days to any of: No Onset/Duration Of Symptoms: Days Symptoms include: fever, headache, bodyaches, sore throat, cough, nasal congestion, difficulty breathing. denies: vomiting, diarrhea, syncope, chest pain, rash Past Medical History Reviewed: Historical Data, Nursing Documentation, Vital Signs Vital Signs: Last Vital Signs Temp 98.9 F 06/03/18 09:36 Pulse 101 H 06/03/18 09:36 Resp 18 06/03/18 09:36 BP 109/60 06/03/18 09:36 Pulse Ox 99 06/03/18 09:36 - Medical History PMH: Anxiety, Bipolar Disorder, Depression, Gastritis Denies: Chronic Kidney Disease - Surgical History Surgical History: No Surg Hx - Family History Family History: States: Unknown Family Hx - Living Arrangements Living Arrangements: Other (HALFWAY) - Immunization History Hx Tetanus Toxoid Vaccination: Yes Hx Influenza Vaccination: No Hx Pneumococcal Vaccination: No - Home Medications Home Medications: Ambulatory Orders Medication Instructions Recorded Acetaminophen [Tylenol 325mg tab] 650 mg PO Q6H PRN tab 04/11/18 Clindamycin [Cleocin] 300 mg PO Q6 7 Days cap 04/11/18 Nicotine 14 mg/24 hr [Nicoderm CQ] 1 patch TD DAILY patch 04/11/18 oxyCODONE/Acetaminophen [Percocet 1 tab PO Q6 PRN tab 04/11/18 5/325 mg Tab] [place] Carbonate [[place] 300 mg PO BID 30 Days #60 cap 04/24/18 Carbonate 300MG] QUEtiapine [SEROquel] 300 mg PO HS 30 Days #30 tab 04/24/18 QUEtiapine [Seroquel] 100 mg PO BID 30 Days #60 tab 04/24/18 Guaifenesin [Mucinex] 600 mg PO Q12H PRN #30 tab.er.12h 06/03/18 Ibuprofen [Motrin] 600 mg PO Q8H PRN #30 tab 06/03/18 - Allergies Allergies/Adverse Reactions: Allergies Allergy/AdvReac Type Severity Reaction Status Date / Time No Known Allergies Allergy Verified 06/03/18 09:56 Review of Systems ROS Statement: Except As Marked, All Systems Reviewed And Found Negative Constitutional: Positive for: Fever, Malaise Eyes: Negative for: Eyelid Inflammation, Redness ENT: Positive for: Nose Discharge, Nose Congestion, Throat Pain. Negative for: Throat Swelling Cardiovascular: Negative for: Chest Pain Respiratory: Positive for: Cough, Shortness of Breath. Negative for: SOB with Exertion, Wheezing Gastrointestinal: Negative for: Nausea, Vomiting, Abdominal Pain, Diarrhea, Constipation Genitourinary Male: Negative for: Dysuria Skin: Negative for: Rash Physical Exam - Reviewed Nursing Documentation Reviewed: Yes Vital Signs Reviewed: Yes - Physical Exam Appears: Positive for: Well, Non-toxic, No Acute Distress Head Exam: Positive for: ATRAUMATIC, NORMAL INSPECTION, NORMOCEPHALIC Skin: Positive for: Normal Color, Warm, DRY Eye Exam: Positive for: EOMI, Normal appearance, PERRL ENT: Positive for: Normal ENT Inspection, TM Is/Are (INTACT), Nasal Congestion, Pharyngeal Erythema. Negative for: Tonsillar Exudate, Tonsillar Swelling Neck: Positive for: Normal, Painless ROM Cardiovascular/Chest: Positive for: Regular Rate, Rhythm Respiratory: Positive for: CNT, Normal Breath Sounds Pulses-Radial (L): 2+ Pulses-Radial (R): 2+ Gastrointestinal/Abdominal: Positive for: Normal Exam, Bowel Sounds, Soft. Negative for: Tenderness, Distended, Guarding Back: Positive for: Normal Inspection Extremity: Positive for: Normal ROM Neurological/Psych: Positive for: Awake, Alert, Normal Tone, Oriented Medical Decision Making Medical Decision Making: --INFLUENZA --RAPID STREP --CXR --MOTRIN 600MG Influenza (-) rapid Strep (-) ccession No. : [id number] Patient Name / ID : AUDRA DRISCOLL / [id number] Exam Date : 06/03/2018 10:50:28 ( Approved ) Study Comment : Sex / Age : M / 23Y Creator : Jayla Bee MD Dictator : Jayla Bee MD Financial Analyst Intern : Senior Environmental Engineer : Jayla Bee MD Approver2 : Report Date : 06/03/2018 11:11:35 My Comment : Date of service: 06/03/2018 HISTORY: Persistent cough and fever COMPARISON: 04/08/2018. TECHNIQUE: Chest PA and lateral FINDINGS: LINES AND TUBES: None. LUNG AND PLEURA: The lungs are well inflated and clear. There is subsegmental atelectasis in the right lower lobe. No pleural effusion or pneumothorax. HEART AND MEDIASTINUM: The heart is not enlarged. No aortic atherosclerotic calcifications present. The hilar and mediastinal contours are within normal limits. SKELETAL STRUCTURES: The bony structures are within normal limits for the patient's age. VISUALIZED UPPER ABDOMEN: Normal. OTHER FINDINGS: None. IMPRESSION: No active pulmonary disease. Labs reviewed by me. CXR is negative. No further work up needed in ED. Clinical findings discussed with patient. patient stable for d/c home. Rx given for Pheregan for cough, motrin for bodyaches. Folow-up to clinic as needed. Patient verbalizes understanding and agrees with plan. - ECG O2 Sat by Pulse Oximetry: 99 - Radiology X-Ray: Read By Radiologist X-Ray Interpretation: No Acute Disease Disposition - Clinical Impression Clinical Impression: Common cold - Patient ED Disposition Is Patient to be Admitted: No Counseled Patient/Family Regarding: Diagnosis, Rx Given - Disposition Referrals: [facility] [Outside] Disposition: Routine/Home Disposition Time: 12:55 Condition: GOOD Prescriptions: Guaifenesin [Mucinex] 600 mg PO Q12H PRN #30 tab.er.12h PRN Reason: Cough Ibuprofen [Motrin] 600 mg PO Q8H PRN #30 tab PRN Reason: Pain, Moderate (4-7) Instructions: Cough, Runny Nose, and the Common Cold (DC) Forms: [employer] ([place]), [facility] ED School/Work Excuse
--- NOTE | 2018-06-03 11:15 | RAD ---
Date of service: 06/03/2018 HISTORY: Persistent cough and fever COMPARISON: 04/08/2018. TECHNIQUE: Chest PA and lateral FINDINGS: LINES AND TUBES: None. LUNG AND PLEURA: The lungs are well inflated and clear. There is subsegmental atelectasis in the right lower lobe. No pleural effusion or pneumothorax. HEART AND MEDIASTINUM: The heart is not enlarged. No aortic atherosclerotic calcifications present. The hilar and mediastinal contours are within normal limits. SKELETAL STRUCTURES: The bony structures are within normal limits for the patient's age. VISUALIZED UPPER ABDOMEN: Normal. OTHER FINDINGS: None. IMPRESSION: No active pulmonary disease.
[2018-06-03 13:12] VITALS: BP 105/43; PULSE 100; TEMP 99.3
[2018-06-03 20:55] VITALS: O2SAT 99
== END 2018-06-03 13:15 | disposition home or self-care (01) ==
LOC: H.ER 09:34
DX: J00 Acute nasopharyngitis [common cold] (principal); F31.9 Bipolar disorder, unspecified; F41.9 Anxiety disorder, unspecified